=== PATIENT | male | born 1960 | race Caucasian/White ===

== ENCOUNTER → 2017-10-15 | Outpatient (CLI) | payer OTHER ==
[~2017-10-15] MED LIST: ALLO300T PO; AMLO5TAB2 PO; ASPI-496 PO; IBUP-1223 PO; LISI1TAB7 PO
[2017-10-15 15:19] LABS: MICROSCOPIC NOT IND
[2017-10-15 15:21] LABS: BASOPHILS # (AUTO) 0.07 x10^3/uL (0-0.1); BASOPHILS % (AUTO) 1 % (0-1); EOSINOPHILS # (AUTO) 0.35 x10^3/uL (0-0.4); EOSINOPHILS % (AUTO) 5 % (1-7); LYMPHOCYTES # (AUTO) 2.06 x10^3/uL (1-3.4); LYMPHOCYTES % (AUTO) 27 % (22-44); MD NO; MEAN CORPUSCULAR HGB CONC 34.1 g/dL (33.2-36.2); MEAN CORPUSCULAR VOLUME 99.8 fL (81-97); MEAN PLATELET VOLUME 7.1 fL (7.4-10.4); MONOCYTES # (AUTO) 0.63 x10^3/uL (0.2-0.8); MONOCYTES % (AUTO) 8 % (2-9); NEUTROPHILS # (AUTO) 4.57 x10^3/uL (1.8-6.8); NEUTROPHILS % (AUTO) 60 % (42-75); PLATELET COUNT 304 x10^3/uL (130-400); RED BLOOD COUNT 4.39 x10^6/uL (4.38-5.82); RED CELL DISTRIBUTION WIDTH 13.9 % (9.4-14.8)
[2017-10-15 15:30] LABS: ALANINE AMINOTRANSFERASE 21 U/L (12-78); ALBUMIN 3.9 g/dL (3.4-5.0); ANION GAP 7 mmol/L (5-15); CALCIUM 8.6 mg/dL (8.5-10.1); CHLORIDE 103 mmol/L (98-107); CREATININE 0.93 mg/dL (0.7-1.3)
[2017-10-15 15:33] LABS: ALKALINE PHOSPHATASE 75 U/L (45-117); BILIRUBIN,TOTAL 0.6 mg/dL (0.2-1.0); TOTAL PROTEIN 7.3 g/dL (6.4-8.2)
[2017-10-15 15:37] LABS: CULTURE INDICATED? NO
== END | disposition home or self-care (01) ==
LOC: STAR 14:16
PROVIDERS: ATTEND Orthopaedic Surgery
DX: Z01.818 Encounter for other preprocedural examination (principal); M17.0 Bilateral primary osteoarthritis of knee; Z96.651 Presence of right artificial knee joint
CPT/HCPCS: 36415; 80053; 81003; 85025; 87081; 93005

== ENCOUNTER 2017-10-28 07:06 | Inpatient (IN) | payer OTHER ==
[~2017-10-28] VITALS: Ht 177.8 cm; Wt 100.1 kg
[~2017-10-28 07:06] MED LIST changes: +EPINEPHRINE 1 MG/ML, 1ML ONE; +KETOROLAC 60 MG/2 ML ONE; +ROPIvacaine/PF 0.2%, 20 ML ONE; +TRANEXAMIC ACID 100 MG/ML, 10ML ONE
[2017-10-28] MEDS ORDERED: VANCOMYCIN PER PHARMACY MC ONE (07:17)
[2017-10-28] MEDS ORDERED: VANCOMYCIN 1,500 MG in SODIUM CHLORIDE 0.9% 250 ML IV ONE (07:30)
[2017-10-28] MEDS ORDERED: LACTATED RINGERS 1,000 ML IV SCH (07:34)
[2017-10-28] MEDS ORDERED: ACETAMINOPHEN 500 MG TABLET PO ONE (07:40)
[2017-10-28] MEDS ORDERED: GABAPENTIN 300 MG CAPSULE PO ONE (07:40)
[2017-10-28 07:43] VITALS: BP 119/80
[2017-10-28] MEDS ORDERED: FENTANYL PF 250 MCG/5ML ONE (07:59)
[2017-10-28] MEDS ORDERED: MIDAZOLAM 1 MG/ML, 2ML ONE (07:59)
[2017-10-28] MEDS ORDERED: morphine SULFATE/PF 1 MG/ML, 10ML ONE (08:49)
[2017-10-28] MEDS ORDERED: ROCURONIUM 10 MG/ML,10ML ONE (09:50)
[2017-10-28] MEDS ORDERED: PROPOFOL 10 MG/ML, 20ML ONE (09:50)
[2017-10-28] MEDS ORDERED: DEXAMETHASONE 4 MG/ML, 1ML ONE ×2 (09:50)
[2017-10-28] MEDS ORDERED: CEFAZOLIN 1,000 MG ONE ×2 (09:50)
[2017-10-28] MEDS ORDERED: ONDANSETRON 2MG/ML, 2ML ONE (09:51)
[2017-10-28] MEDS ORDERED: DIAZEPAM 5 MG/ML, 2ML IVPush PRN (10:00)
[2017-10-28] MEDS ORDERED: PROMETHAZINE 25 MG/ML, 1ML IV PRN (10:00)
[2017-10-28] MEDS ORDERED: EPHEDRINE 50 MG/ML, 1ML IVPush PRN (10:00)
[2017-10-28] MEDS ORDERED: ONDANSETRON 2MG/ML, 2ML IVPush PRN ×2 (10:00→13:00)
[2017-10-28] MEDS ORDERED: OXYcodone 5 MG/5 ML ORAL.SOL UDC PO PRN (10:00)
[2017-10-28] MEDS ORDERED: LABETALOL 5MG/ML, 20ML IV PRN (10:00)
[2017-10-28] MEDS ORDERED: ALBUTEROL SULFATE 2.5 MG/3 ML NPPB PRN (10:00)
[2017-10-28] MEDS ORDERED: MEPERIDINE/PF 25MG/0.5ML IVPush PRN (10:00)
[2017-10-28] MEDS ORDERED: hydrALAzine 20 MG/ML, 1ML IV PRN (10:00)
[2017-10-28] MEDS ORDERED: METOPROLOL 1 MG/ML, 5ML IV PRN (10:00)
[2017-10-28] MEDS ORDERED: GLYCOPYRROLATE 0.4 MG/2 ML, 2ML ONE (10:49)
[2017-10-28] MEDS ORDERED: NEOSTIGMINE 1 MG/ML, 10ML ONE (10:49)
[2017-10-28] MEDS ORDERED: FENTANYL PF 100 MCG/2ML ONE ×2 (11:24→11:40)
[2017-10-28] MEDS: FENTANYL PF 100 MCG/2ML IV PRN ×5 (11:25→11:57)
[2017-10-28] MEDS ORDERED: MORPHINE SULFATE 4 MG/ML, 1ML ONE ×3 (11:31→11:59)
[2017-10-28] MEDS ORDERED: OXYcodone 5 MG/5 ML ORAL.SOL UDC ONE (11:31)
[2017-10-28] MEDS: morphine SULFATE 10 MG/ML, 1ML IV PRN ×3 (11:34→12:07)
[2017-10-28 12:35] VITALS: BP 112/63
[2017-10-28] MEDS ORDERED: MAGNESIUM HYDROXIDE 8%, 30ML UDC PO PRN (13:00)
[2017-10-28] MEDS ORDERED: ONDANSETRON ODT 4 MG PO PRN (13:00)
[2017-10-28] MEDS ORDERED: SENNA/DOCUSATE TABLET PO PRN (13:00)
[2017-10-28] MEDS ORDERED: DIPHENHYDRAMINE 25 MG CAPSULE PO PRN (13:00)
[2017-10-28] MEDS ORDERED: ALUMINUM/MAG/SIMETHICONE 30 ML UDC PO PRN (13:00)
[2017-10-28] MEDS ORDERED: ACETAMINOPHEN 325 MG TABLET PO PRN (13:00)
[2017-10-28] MEDS ORDERED: ZOLPIDEM 5MG TABLET PO PRN (13:00)
[2017-10-28] MEDS ORDERED: BISACODYL 10 MG SUPP PR PRN (13:00)
[2017-10-28] MEDS: POTASSIUM CHLORIDE 10 MEQ in D5%-0.45% NACL 1,000 ML IV SCH (15:25)
[2017-10-28] MEDS: HYDROcodone/APAP 10/325 MG TABLET PO SCH ×2 (17:00→23:00)
[2017-10-28] MEDS: CEFAZOLIN PMX 1GM/50ML 50 ML IVPB SCH (17:11)
[2017-10-28 17:20] VITALS: BP 102/58
[2017-10-28 20:04] VITALS: BP 98/62
[2017-10-28] MEDS: DOCUSATE 100 MG CAPSULE PO SCH (22:18)
[2017-10-28] MEDS: HYDROcodone/APAP 10/325 MG TABLET PO PRN (22:21)
[2017-10-28] MEDS: SODIUM CHLORIDE FLUSH 10ML SYR IVF SCH (22:27)
[2017-10-29] MEDS: CEFAZOLIN PMX 1GM/50ML 50 ML IVPB SCH (01:19)
[2017-10-29 01:52] VITALS: BP 97/62
[2017-10-29] MEDS: HYDROcodone/APAP 10/325 MG TABLET PO PRN ×2 (02:09→06:03)
[2017-10-29 04:00] VITALS: BP 97/59
[2017-10-29] MEDS: HYDROcodone/APAP 10/325 MG TABLET PO SCH ×2 (05:00→11:00)
[2017-10-29] MEDS ORDERED: ENOXAPARIN 30 MG/0.3 ML SQ SCH (06:00)
[2017-10-29] MEDS ORDERED: AMLODIPINE 5 MG TABLET PO SCH (09:00)
[2017-10-29] MEDS: SODIUM CHLORIDE FLUSH 10ML SYR IVF SCH (09:00)
[2017-10-29] MEDS ORDERED: LISINOPRIL 20 MG TABLET PO SCH (09:00)
[2017-10-29] MEDS ORDERED: HYDROCHLOROTHIAZIDE 25 MG TABLET PO SCH (09:00)
[2017-10-29] MEDS ORDERED: MULTIVITAMINS/MINERALS TABLET PO SCH (09:00)
[2017-10-29] MEDS ORDERED: ALLOPURINOL 300 MG TABLET PO SCH (09:00)
[2017-10-29] MEDS: POTASSIUM CHLORIDE 10 MEQ in D5%-0.45% NACL 1,000 ML IV SCH (09:06)
[2017-10-29] MEDS ORDERED: GABAPENTIN 300 MG CAPSULE ONE (09:14)
[2017-10-29 09:17] VITALS: BP 103/68
[2017-10-29] MEDS: OXYcodone 5 MG/5 ML ORAL.SOL UDC PO PRN ×2 (09:22→14:11)
[2017-10-29] MEDS: DOCUSATE 100 MG CAPSULE PO SCH (09:23)
[2017-10-29] MEDS ORDERED: KETOROLAC 30 MG/1 ML IV SCH (13:00)
[2017-10-29 13:17] VITALS: BP 101/62
[2017-10-29] MEDS ORDERED: OXYC-307 PO (15:26)
[2017-10-29] MEDS ORDERED: ASPI-515 PO (15:29)
== END 2017-10-29 15:50 | disposition home or self-care (01) | DRG 470 ==
LOC: OUT 07:06 → EDSTATUS 07:30 → 4NOR 12:33 → OUT 23:56 → 4NOR 23:56 → DCLOUNGE 10-29 15:12
PROVIDERS: ADMIT Orthopaedic Surgery; ATTEND Orthopaedic Surgery
PROC: 0SRC0J9 Replacement of Right Knee Joint with Synthetic Substitute, Cemented, Open Approach (ICD-10-PCS; principal; 2017-10-28 09:00)
DX: M17.11 Unilateral primary osteoarthritis, right knee (principal)
CPT/HCPCS: C1713; J0171; J0690; J1100; J1650; J1885; J2250; J2274; J2405; J2704; J2710; J2795; J3010; J3370; J3480; C1776; J2270; J7050; J7120; Q0163

== ENCOUNTER 2018-04-03 00:51 | Inpatient (IN) | payer OTHER ==
[~2018-04-03] VITALS: Ht 172.7 cm; Wt 103.9 kg
[~2018-04-03 00:51] MED LIST changes: -AMLO5TAB2 PO; +AMLO5TAB7 PO; +ASPI-515 PO; -EPINEPHRINE 1 MG/ML, 1ML ONE; -KETOROLAC 60 MG/2 ML ONE; +OXYC-307 PO; -ROPIvacaine/PF 0.2%, 20 ML ONE; -TRANEXAMIC ACID 100 MG/ML, 10ML ONE
[2018-04-03 02:00] LABS: BASOPHILS # (AUTO) 0.05 x10^3/uL (0-0.1); BASOPHILS % (AUTO) 0 % (0-1); EOSINOPHILS # (AUTO) 0.47 x10^3/uL (0-0.4); EOSINOPHILS % (AUTO) 4 % (1-7); LYMPHOCYTES # (AUTO) 1.54 x10^3/uL (1-3.4); LYMPHOCYTES % (AUTO) 14 % (22-44); MD NO; MEAN CORPUSCULAR HEMOGLOBIN 34.5 pg (27.5-34.5); MEAN CORPUSCULAR HGB CONC 34.4 g/dL (33.2-36.2); MEAN CORPUSCULAR VOLUME 100.1 fL (81-97); MEAN PLATELET VOLUME 7.2 fL (7.4-10.4); MONOCYTES # (AUTO) 0.55 x10^3/uL (0.2-0.8); MONOCYTES % (AUTO) 5 % (2-9); NEUTROPHILS % (AUTO) 77 % (42-75); PLATELET COUNT 294 x10^3/uL (130-400); RED BLOOD COUNT 4.26 x10^6/uL (4.38-5.82); RED CELL DISTRIBUTION WIDTH 14.1 % (9.4-14.8)
[2018-04-03 02:00] LABS: MICROSCOPIC NOT IND
[2018-04-03 02:04] LABS: CULTURE INDICATED? NO
[2018-04-03 02:09] LABS: ALANINE AMINOTRANSFERASE 38 U/L (12-78); ALBUMIN 3.4 g/dL (3.4-5.0); ANION GAP 3 mmol/L (5-15); CALCIUM 8.6 mg/dL (8.5-10.1); CHLORIDE 107 mmol/L (98-107)
[2018-04-03 02:12] LABS: ALKALINE PHOSPHATASE 99 U/L (45-117); BILIRUBIN,TOTAL 0.3 mg/dL (0.2-1.0); TOTAL PROTEIN 6.9 g/dL (6.4-8.2)
[2018-04-03] MEDS ORDERED: OMNIPAQUE 350 MG/ML, 100ML BOTTLE ONE (02:55)
[2018-04-03] MEDS ORDERED: SODIUM CHLORIDE 0.9% 1,000 ML IV ONE (04:14)
[2018-04-03] MEDS ORDERED: MORPHINE SULFATE 4 MG/ML, 1ML IVPush PRN (04:30)
[2018-04-03] MEDS ORDERED: SODIUM CHLORIDE 0.9% 1,000ML IVBOLUS ONE (04:30)
[2018-04-03] MEDS ORDERED: ONDANSETRON ODT 4 MG ONE (04:38)
[2018-04-03] MEDS ORDERED: MORPHINE SULFATE 4 MG/ML, 1ML ONE (04:39)
[2018-04-03] MEDS: SODIUM CHLORIDE 0.9% 1,000 ML IV SCH ×4 (04:55→22:40)
[2018-04-03] MEDS ORDERED: ONDANSETRON 2MG/ML, 2ML IVPush PRN (05:00)
[2018-04-03] MEDS ORDERED: LABETALOL 5MG/ML, 20ML IVPush PRN (05:00)
[2018-04-03] MEDS ORDERED: ONDANSETRON ODT 4 MG PO PRN (05:00)
[2018-04-03] MEDS ORDERED: PROMETHAZINE 25 MG/ML, 1ML IM PRN (05:00)
[2018-04-03] MEDS ORDERED: OXYcodone/APAP 5/325MG TABLET PO PRN (05:00)
[2018-04-03] MEDS ORDERED: hydrALAzine 20 MG/ML, 1ML IVPush PRN (05:00)
[2018-04-03] MEDS ORDERED: GABAPENTIN 300 MG CAPSULE PO PRN (05:00)
[2018-04-03] MEDS ORDERED: DOCUSATE 100 MG CAPSULE PO PRN (05:00)
[2018-04-03] MEDS ORDERED: POLYETHYLENE GLYCOL 17 GM PACKET PO PRN (05:00)
[2018-04-03 05:49] LABS: FREE T4 (FREE THYROXINE) 0.91 ng/dL (0.76-1.46); THYROID STIMULATING HORMONE 2.18 mIU/L (0.358-3.740)
[2018-04-03] MEDS ORDERED: HEPARIN 5,000 UNITS/ML, 1ML ONE (06:19)
[2018-04-03] MEDS: HEPARIN 5,000 UNITS/ML, 1ML SQ SCH ×3 (06:21→21:00)
[2018-04-03 08:49] LABS: HEMOGLOBIN A1C 5.3 % (4.2-6.3)
[2018-04-03] MEDS: ASPIRIN 81 MG TABLET EC PO SCH ×2 (09:48→21:14)
[2018-04-03] MEDS: AMLODIPINE 10 MG TAB PO SCH (09:48)
[2018-04-03] MEDS: LISINOPRIL 20 MG TABLET PO SCH (09:48)
[2018-04-03] MEDS: ALLOPURINOL 300 MG TABLET PO SCH (09:48)
[2018-04-03] MEDS: morphine SULFATE 10 MG/ML, 1ML IVPush PRN ×4 (10:37→22:26)
[2018-04-03 14:04] VITALS: BP 100/68
[2018-04-03] MEDS: maalox/diphenh/lido/sucralfate 5 ML PO PRN ×2 (15:35→21:13)
[2018-04-03 19:52] VITALS: BP 120/74
[2018-04-03] MEDS ORDERED: DIPHENHYDRAMINE 50 MG/ML, 1ML IVPush PRN (22:30)
[2018-04-04 02:00] VITALS: BP 111/70
[2018-04-04] MEDS: SODIUM CHLORIDE 0.9% 1,000 ML IV SCH (04:06)
[2018-04-04] MEDS: HEPARIN 5,000 UNITS/ML, 1ML SQ SCH ×3 (05:00→21:00)
[2018-04-04 05:31] LABS: BASOPHILS # (AUTO) 0.05 x10^3/uL (0-0.1); BASOPHILS % (AUTO) 1 % (0-1); CHLORIDE 110 mmol/L (98-107); EOSINOPHILS # (AUTO) 0.39 x10^3/uL (0-0.4); EOSINOPHILS % (AUTO) 6 % (1-7); LYMPHOCYTES # (AUTO) 1.49 x10^3/uL (1-3.4); LYMPHOCYTES % (AUTO) 24 % (22-44); MD NO; MEAN CORPUSCULAR HGB CONC 33.9 g/dL (33.2-36.2); MEAN CORPUSCULAR VOLUME 100.3 fL (81-97); MEAN PLATELET VOLUME 7.2 fL (7.4-10.4); MONOCYTES # (AUTO) 0.68 x10^3/uL (0.2-0.8); MONOCYTES % (AUTO) 11 % (2-9); NEUTROPHILS # (AUTO) 3.69 x10^3/uL (1.8-6.8); NEUTROPHILS % (AUTO) 59 % (42-75); PLATELET COUNT 242 x10^3/uL (130-400); RED BLOOD COUNT 3.81 x10^6/uL (4.38-5.82); RED CELL DISTRIBUTION WIDTH 14.3 % (9.4-14.8)
[2018-04-04 05:48] LABS: ALANINE AMINOTRANSFERASE 47 U/L (12-78); ALBUMIN 2.9 g/dL (3.4-5.0); ALKALINE PHOSPHATASE 95 U/L (45-117); ANION GAP 5 mmol/L (5-15); BILIRUBIN,TOTAL 0.8 mg/dL (0.2-1.0); CALCIUM 8.2 mg/dL (8.5-10.1); CHOL/HDL RATIO 4.1; CHOLESTEROL, TOTAL 140 mg/dL (140-239); CREATININE 0.84 mg/dL (0.7-1.3); HDL CHOL % 24 % (26-37); HDL CHOLESTEROL (DIRECT) 34 mg/dL (40-60); LDL CHOLESTEROL,CALCULATED 77 mg/dL (54-169); LDL/HDL RATIO 2.3 (0.5-3.0); TOTAL PROTEIN 5.9 g/dL (6.4-8.2); TRIGLYCERIDES 145 mg/dL (50-200); VLDL CHOLESTEROL 29 mg/dL (0-25)
[2018-04-04] MEDS: ASPIRIN 81 MG TABLET EC PO SCH ×2 (08:12→19:54)
[2018-04-04] MEDS: ALLOPURINOL 300 MG TABLET PO SCH (08:12)
[2018-04-04] MEDS: LISINOPRIL 20 MG TABLET PO SCH (08:12)
[2018-04-04] MEDS: AMLODIPINE 10 MG TAB PO SCH (08:12)
[2018-04-04] MEDS: morphine SULFATE 10 MG/ML, 1ML IVPush PRN ×3 (08:32→19:54)
[2018-04-04 09:06] VITALS: BP 111/78
[2018-04-04 14:07] VITALS: BP 107/75
[2018-04-04 19:46] VITALS: BP 114/76
[2018-04-05 01:00] VITALS: BP 117/76
[2018-04-05] MEDS: HEPARIN 5,000 UNITS/ML, 1ML SQ SCH (04:41)
[2018-04-05 07:47] VITALS: BP 115/74
[2018-04-05] MEDS: ASPIRIN 81 MG TABLET EC PO SCH (07:48)
[2018-04-05] MEDS: ALLOPURINOL 300 MG TABLET PO SCH (07:48)
[2018-04-05] MEDS: LISINOPRIL 20 MG TABLET PO SCH (07:48)
[2018-04-05] MEDS: AMLODIPINE 10 MG TAB PO SCH (07:48)
== END 2018-04-05 08:50 | disposition home or self-care (01) | DRG 440 ==
LOC: ED 04:30 → EDIP 04:50 → 4NOR 08:51
PROVIDERS: ADMIT Internal Medicine; ATTEND Internal Medicine
DX: K85.20 Alcohol induced acute pancreatitis without necrosis or infection (principal); K80.20 Calculus of gallbladder without cholecystitis without obstruction; Y90.0 Blood alcohol level of less than 20 mg/100 ml; I10 Essential (primary) hypertension; K43.9 Ventral hernia without obstruction or gangrene; F10.10 Alcohol abuse, uncomplicated; K57.30 Diverticulosis of large intestine without perforation or abscess without bleeding; K82.8 Other specified diseases of gallbladder; M1A.9XX0 Chronic gout, unspecified, without tophus (tophi); Z96.651 Presence of right artificial knee joint; Z71.41 Alcohol abuse counseling and surveillance of alcoholic; Z88.6 Allergy status to analgesic agent
CPT/HCPCS: 36415; 74177; 74181; 80053; 80061; 81003; 83036; 83690; 83735; 84439; 84443; 85025; 93005; 99285; G0378; J1644; J2405; Q9967; J1200; J2270; J7030

== ENCOUNTER 2018-05-06 09:26 | Inpatient (IN) | payer OTHER ==
[~2018-05-06] VITALS: Ht 180.3 cm; Wt 113.9 kg
[~2018-05-06 09:26] MED LIST changes: +MIDAZOLAM 1 MG/ML, 5ML ONE; +ROCURONIUM 10 MG/ML,10ML ONE
[2018-05-06] MEDS ORDERED: ONDANSETRON 2MG/ML, 2ML ONE (09:58)
[2018-05-06] MEDS ORDERED: MORPHINE SULFATE 4 MG/ML, 1ML ONE ×2 (09:58→10:48)
[2018-05-06] MEDS ORDERED: ONDANSETRON 2MG/ML, 2ML IVPush ONE (10:00)
[2018-05-06] MEDS: MORPHINE SULFATE 4 MG/ML, 1ML IVPush PRN ×2 (10:00→10:52)
[2018-05-06] MEDS ORDERED: SODIUM CHLORIDE 0.9% 1,000ML IVBOLUS ONE ×2 (10:00→23:00)
[2018-05-06 10:13] LABS: MEAN CORPUSCULAR HEMOGLOBIN 33.8 pg (27.5-34.5); MEAN CORPUSCULAR HGB CONC 33.8 g/dL (33.2-36.2); MEAN CORPUSCULAR VOLUME 99.9 fL (81-97); MEAN PLATELET VOLUME 7.3 fL (7.4-10.4); PLATELET COUNT 338 x10^3/uL (130-400); RED BLOOD COUNT 4.73 x10^6/uL (4.38-5.82); RED CELL DISTRIBUTION WIDTH 14.1 % (9.4-14.8)
[2018-05-06 10:16] LABS: MICROSCOPIC NOT IND
[2018-05-06 10:21] LABS: CULTURE INDICATED? NO
[2018-05-06 10:26] LABS: ALANINE AMINOTRANSFERASE 66 U/L (12-78); ALBUMIN 3.6 g/dL (3.4-5.0); ANION GAP 7 mmol/L (5-15); CALCIUM 8.3 mg/dL (8.5-10.1); CHLORIDE 107 mmol/L (98-107)
[2018-05-06 10:29] LABS: ALKALINE PHOSPHATASE 126 U/L (45-117); BILIRUBIN,TOTAL 0.8 mg/dL (0.2-1.0); CREATININE 0.97 mg/dL (0.7-1.3); TOTAL PROTEIN 6.9 g/dL (6.4-8.2)
[2018-05-06 10:32] LABS: MD YES
[2018-05-06 10:35] LABS: BAND#(MANUAL) 1.01 x10^3/uL; BANDS%(MANUAL) 5 % (0-7); EOS% (MANUAL) 2 % (1-7); LYMPH#(MANUAL) 3.03 x10^3/uL (1-3.4); LYMPHS% (MANUAL) 15 % (22-44); MONOS#(MANUAL) 0.81 x10^3/uL (0.3-2.7); MONOS% (MANUAL) 4 % (2-9); SEG#(MANUAL) 14.95 x10^3/uL (1.8-6.8); SEGS% (MANUAL) 74 % (42-75)
[2018-05-06 10:36] LABS: <PLATELET ESTIMATE> ADEQUATE; <PLT MORPHOLOGY> NORMAL PLT MORPH; <RBC MORPHOLOGY> NORMAL
[2018-05-06] MEDS ORDERED: SODIUM CHLORIDE 0.9% 1,000 ML IV ONE (10:39)
[2018-05-06 13:02] VITALS: BP 90/57
[2018-05-06] MEDS ORDERED: ONDANSETRON 2MG/ML, 2ML IVPush PRN (14:00)
[2018-05-06] MEDS ORDERED: HYDROmorphone 2 MG/ML, 1ML ONE (14:02)
[2018-05-06] MEDS: HYDROmorphone 2 MG/ML, 1ML IVPush PRN ×4 (14:05→22:54)
[2018-05-06] MEDS: POTASSIUM CHLORIDE 20 MEQ, MAGNESIUM SULFATE 1 GM, FOLIC ACID 1 MG, THIAMINE 200 MG, MV... IV SCH (14:49)
[2018-05-06] MEDS: LORazepam 2 MG/ML, 1ML IVPush PRN (20:50)
[2018-05-06 21:00] VITALS: BP 75/47
[2018-05-06] MEDS ORDERED: PANTOPRAZOLE 40 MG IV IVPush SCH (21:00)
[2018-05-06] MEDS: SODIUM CHLORIDE 0.9% 1,000 ML IV SCH (21:00)
[2018-05-06] MEDS ORDERED: SODIUM CHLORIDE 0.9% 1,000 ML IVBOLUS PRN (21:52)
[2018-05-06] MEDS ORDERED: FLUMAZENIL 0.1 MG/1 ML, 5ML IVPush PRN (22:00)
[2018-05-06] MEDS ORDERED: NOREPINEPHRINE 1 MG/ML, 4ML ONE (22:28)
[2018-05-06] MEDS ORDERED: NOREPINEPHRINE 4 MG in SODIUM CHLORIDE 0.9% 246 ML IV PRN (22:30)
[2018-05-06] MEDS ORDERED: PIPERACILLIN/TAZO/PMX 4.5GM 100 ML IV SCH (22:30)
[2018-05-06] MEDS: NOREPINEPHRINE 4 MG in SODIUM CHLORIDE 0.9% 246 ML IV PRN (22:34)
[2018-05-06 22:35] LABS: ALANINE AMINOTRANSFERASE 91 U/L (12-78); ALBUMIN 2.6 g/dL (3.4-5.0); ANION GAP 9 mmol/L (5-15); CALCIUM 7.4 mg/dL (8.5-10.1); CHLORIDE 115 mmol/L (98-107); CREATININE 2.13 mg/dL (0.7-1.3)
[2018-05-06 22:36] LABS: INTERNATIONAL NORMALIZED RATIO 0.98 (0.93-1.1); PROTHROMBIN TIME 10.1 Seconds (9.6-11.5)
[2018-05-06 22:37] LABS: ALKALINE PHOSPHATASE 90 U/L (45-117); BILIRUBIN,TOTAL 0.6 mg/dL (0.2-1.0); TOTAL PROTEIN 5.4 g/dL (6.4-8.2)
[2018-05-06 22:42] LABS: TROPONIN I < 0.015 ng/mL (0.000-0.045)
[2018-05-07] MEDS ORDERED: GLUCAGON 1 MG IM PRN
[2018-05-07] MEDS ORDERED: DEXTROSE 50%, 50ML SYRINGE IVPush PRN
[2018-05-07] MEDS ORDERED: PANTOPRAZOLE 40 MG IV IVPush ONE
[2018-05-07] MEDS ORDERED: SODIUM CHLORIDE 0.9% 1,000ML IVBOLUS ONE
[2018-05-07] MEDS ORDERED: LACTULOSE 20 GM/30 ML UDC NG PRN
[2018-05-07] MEDS ORDERED: PHARMACY MAY ADJ FOR RENAL FX MC SCH
[2018-05-07] MEDS ORDERED: SENNOSIDES 8.8 MG/5 ML ORAL SOL NG PRN
[2018-05-07] MEDS ORDERED: SENNA/DOCUSATE TABLET NG PRN
[2018-05-07] MEDS ORDERED: BISACODYL 10 MG SUPP PR PRN
[2018-05-07] MEDS ORDERED: DEXTROSE 4 GM TAB.CHEW PO PRN
[2018-05-07] MEDS ORDERED: MIDAZOLAM 1 MG/ML, 5ML ONE (00:02)
[2018-05-07] MEDS ORDERED: ACETAMINOPHEN 325 MG TABLET PO PRN (00:30)
[2018-05-07] MEDS ORDERED: SODIUM BICARB 8.4%, 50ML SYRINGE ONE (00:30)
[2018-05-07] MEDS ORDERED: SODIUM BICARB 8.4%, 50ML SYRINGE IVPush ONE (00:30)
[2018-05-07 00:46] LABS: MEAN CORPUSCULAR HEMOGLOBIN 34.1 pg (27.5-34.5); MEAN CORPUSCULAR HGB CONC 34.1 g/dL (33.2-36.2); MEAN PLATELET VOLUME 7.7 fL (7.4-10.4); PLATELET COUNT 270 x10^3/uL (130-400)
[2018-05-07 00:56] LABS: ALANINE AMINOTRANSFERASE 81 U/L (12-78); ALBUMIN 2.4 g/dL (3.4-5.0); ANION GAP 8 mmol/L (5-15); CHLORIDE 115 mmol/L (98-107); CREATININE 2.17 mg/dL (0.7-1.3)
[2018-05-07 00:58] LABS: ALKALINE PHOSPHATASE 82 U/L (45-117); BILIRUBIN,TOTAL 0.6 mg/dL (0.2-1.0); TOTAL PROTEIN 5.1 g/dL (6.4-8.2)
[2018-05-07] MEDS: MIDAZOLAM HCL 25 MG in SODIUM CHLORIDE 0.9% 245 ML IV PRN ×2 (01:03→21:41)
[2018-05-07] MEDS: NOREPINEPHRINE 4 MG in SODIUM CHLORIDE 0.9% 246 ML IV PRN (01:23)
[2018-05-07] MEDS: VASOPRESSIN 100 UNIT in SODIUM CHLORIDE 0.9% 495 ML IV PRN (01:24)
[2018-05-07] MEDS ORDERED: POTASSIUM PHOSPHATE 22 MEQ in SODIUM CHLORIDE 0.9% 500 ML IV ONE (01:30)
[2018-05-07] MEDS ORDERED: EPINEPHRINE 1 MG in SODIUM CHLORIDE 0.9% 249 ML IV PRN (01:30)
[2018-05-07] MEDS: ALBUTEROL/IPRATROPIUM 2.5MG/0.5MG, 3 ML INLINE SCH ×6 (03:21→22:39)
[2018-05-07] MEDS ORDERED: SODIUM BICARBONATE 1 MEQ/ML, 50ML VIAL ONE ×2 (03:51)
[2018-05-07] MEDS ORDERED: SODIUM BICARBONATE 1 MEQ/ML, 50ML VIAL IVPush ONE (03:52)
[2018-05-07] MEDS ORDERED: PHENYLEPHRINE 20 MG in SODIUM CHLORIDE 0.9% 248 ML IV PRN (04:00)
[2018-05-07] MEDS: PHENYLEPHRINE 80 MG in SODIUM CHLORIDE 0.9% 242 ML IV PRN ×2 (04:16→19:51)
[2018-05-07] MEDS: MEROPENEM 1 GM in SODIUM CHLORIDE 0.9% 100 ML IV SCH ×2 (04:21→11:39)
[2018-05-07 04:33] LABS: MEAN CORPUSCULAR HEMOGLOBIN 33.5 pg (27.5-34.5); MEAN CORPUSCULAR HGB CONC 33.6 g/dL (33.2-36.2); MEAN CORPUSCULAR VOLUME 99.7 fL (81-97); MEAN PLATELET VOLUME 7.5 fL (7.4-10.4); PLATELET COUNT 298 x10^3/uL (130-400); RED BLOOD COUNT 3.91 x10^6/uL (4.38-5.82); RED CELL DISTRIBUTION WIDTH 14.1 % (9.4-14.8)
[2018-05-07] MEDS: EPINEPHRINE 2 MG in SODIUM CHLORIDE 0.9% 248 ML IV PRN ×3 (04:33→09:23)
[2018-05-07 04:44] LABS: ALANINE AMINOTRANSFERASE 68 U/L (12-78); ALBUMIN 2.1 g/dL (3.4-5.0); ANION GAP 14 mmol/L (5-15); CALCIUM 6.5 mg/dL (8.5-10.1); CHLORIDE 118 mmol/L (98-107)
[2018-05-07 04:49] LABS: ALKALINE PHOSPHATASE 73 U/L (45-117); BILIRUBIN,TOTAL 0.6 mg/dL (0.2-1.0); CREATININE 2.19 mg/dL (0.7-1.3); TOTAL PROTEIN 4.6 g/dL (6.4-8.2)
[2018-05-07] MEDS: SODIUM CHLORIDE 0.9% 1,000 ML IV SCH (05:00)
[2018-05-07 05:10] LABS: MD YES
[2018-05-07 05:12] LABS: <PLATELET ESTIMATE> ADEQUATE; <RBC MORPHOLOGY> NORMAL; BAND#(MANUAL) 1.73 x10^3/uL; BANDS%(MANUAL) 15 % (0-7); LYMPH#(MANUAL) 0.92 x10^3/uL (1-3.4); LYMPHS% (MANUAL) 8 % (22-44); MONOS#(MANUAL) 0.81 x10^3/uL (0.3-2.7); MONOS% (MANUAL) 7 % (2-9); SEG#(MANUAL) 8.05 x10^3/uL (1.8-6.8); SEGS% (MANUAL) 70 % (42-75)
[2018-05-07 05:13] LABS: <PLT MORPHOLOGY> NORMAL PLT MORPH
[2018-05-07] MEDS ORDERED: MAGNESIUM SULFATE PMX 2GM/50ML 50 ML IV ONE (06:00)
[2018-05-07] MEDS: FENTANYL PF 100 MCG/2ML IVPush PRN ×3 (06:13→08:49)
[2018-05-07] MEDS: INSULIN LISPRO 100 UNITS/ML, PEN SQ-INSULIN SCH ×5 (07:00→21:42)
[2018-05-07] MEDS ORDERED: CALCIUM CHLORIDE 13.6 MEQ in SODIUM CHLORIDE 0.9% 100 ML IV ONE (08:00)
[2018-05-07] MEDS: SODIUM BICARB 8.4%,50ML SYR. 150 MEQ in DEXTROSE 5% 1,000 ML IV SCH ×2 (08:58→17:50)
[2018-05-07] MEDS: SODIUM CHLORIDE FLUSH 10ML SYR IVF SCH ×2 (09:00→21:42)
[2018-05-07] MEDS ORDERED: PANTOPRAZOLE 40 MG IV IV SCH (09:00)
[2018-05-07] MEDS ORDERED: EPINEPHRINE 4 MG in SODIUM CHLORIDE 0.9% 246 ML IV PRN (09:00)
[2018-05-07] MEDS: FENTANYL PF 2,500 MCG in SODIUM CHLORIDE 0.9% 200 ML IV PRN (09:15)
[2018-05-07] MEDS: NOREPINEPHRINE 16 MG in SODIUM CHLORIDE 0.9% 234 ML IV PRN ×2 (11:20→22:56)
[2018-05-07] MEDS: PANTOPRAZOLE 80 MG in SODIUM CHLORIDE 0.9% 100 ML IV SCH ×3 (12:15→22:56)
[2018-05-07] MEDS ORDERED: SODIUM CHLORIDE 0.9% 1,000 ML IV SCH (13:50)
[2018-05-07] MEDS: POTASSIUM CHLORIDE 20 MEQ, MAGNESIUM SULFATE 1 GM, FOLIC ACID 1 MG, THIAMINE 200 MG, MV... IV SCH (15:08)
[2018-05-07] MEDS ORDERED: MIDAZOLAM 1 MG/ML, 5ML IVPush ONE (15:30)
[2018-05-08] MEDS: ACETAMINOPHEN 650 MG SUPP PR PRN (00:27)
[2018-05-08] MEDS: MEROPENEM 1 GM in SODIUM CHLORIDE 0.9% 100 ML IV SCH ×3 (01:44→18:26)
[2018-05-08] MEDS: SODIUM BICARB 8.4%,50ML SYR. 150 MEQ in DEXTROSE 5% 1,000 ML IV SCH (01:49)
[2018-05-08] MEDS: ALBUTEROL/IPRATROPIUM 2.5MG/0.5MG, 3 ML INLINE SCH ×6 (02:23→22:59)
[2018-05-08] MEDS ORDERED: DIGOXIN 0.25 MG/ML, 2ML ONE ×2 (03:42→12:39)
[2018-05-08] MEDS ORDERED: DIGOXIN 0.25 MG/ML, 2ML IVPush ONE ×3 (04:30→14:30)
[2018-05-08] MEDS: AMIODARONE 900 MG in DEXTROSE 5% 482 ML IV PRN ×2 (04:50→21:40)
[2018-05-08] MEDS ORDERED: FILTER 0.22 MICRON IV PRN (05:00)
[2018-05-08] MEDS ORDERED: AMIODARONE 150 MG in DEXTROSE 5% 100 ML IV ONE ×2 (05:00→12:30)
[2018-05-08 05:47] LABS: ALANINE AMINOTRANSFERASE 49 U/L (12-78); ALBUMIN 1.7 g/dL (3.4-5.0); ANION GAP 8 mmol/L (5-15); CALCIUM 6.6 mg/dL (8.5-10.1); CHLORIDE 114 mmol/L (98-107); MEAN CORPUSCULAR HEMOGLOBIN 33.5 pg (27.5-34.5); MEAN CORPUSCULAR HGB CONC 33.3 g/dL (33.2-36.2); MEAN CORPUSCULAR VOLUME 100.5 fL (81-97); MEAN PLATELET VOLUME 8.1 fL (7.4-10.4); PLATELET COUNT 241 x10^3/uL (130-400); RED BLOOD COUNT 4.33 x10^6/uL (4.38-5.82); RED CELL DISTRIBUTION WIDTH 14.4 % (9.4-14.8)
[2018-05-08 05:50] LABS: ALKALINE PHOSPHATASE 74 U/L (45-117); BILIRUBIN,TOTAL 0.7 mg/dL (0.2-1.0); TOTAL PROTEIN 4.8 g/dL (6.4-8.2)
[2018-05-08 05:54] LABS: TROPONIN I < 0.015 ng/mL (0.000-0.045)
[2018-05-08 06:16] LABS: MD YES
[2018-05-08 06:20] LABS: LYMPH#(MANUAL) 0.58 x10^3/uL (1-3.4); LYMPHS% (MANUAL) 9 % (22-44); METAMYELOCYTES# (MANUAL) 0.19 x10^3/uL (0-0); METAMYELOCYTES% (MANUAL) 3 % (0-1); MONOS#(MANUAL) 0.13 x10^3/uL (0.3-2.7); MONOS% (MANUAL) 2 % (2-9); PMNS WITH VACUOLES 1+; SMUDGE CELLS 1+
[2018-05-08 06:22] LABS: <PLATELET ESTIMATE> ADEQUATE; <PLT MORPHOLOGY> NORMAL PLT MORPH; <RBC MORPHOLOGY> NORMAL
[2018-05-08 06:24] LABS: BAND#(MANUAL) 2.75 x10^3/uL; BANDS%(MANUAL) 43 % (0-7); SEG#(MANUAL) 2.75 x10^3/uL (1.8-6.8); SEGS% (MANUAL) 43 % (42-75)
[2018-05-08] MEDS: INSULIN LISPRO 100 UNITS/ML, PEN SQ-INSULIN SCH ×4 (06:46→21:00)
[2018-05-08] MEDS ORDERED: CALCIUM CHLORIDE 13.6 MEQ in SODIUM CHLORIDE 0.9% 100 ML IV ONE (07:30)
[2018-05-08] MEDS: PANTOPRAZOLE 80 MG in SODIUM CHLORIDE 0.9% 100 ML IV SCH (07:50)
[2018-05-08] MEDS: MIDAZOLAM HCL 25 MG in SODIUM CHLORIDE 0.9% 245 ML IV PRN ×2 (07:51→18:26)
[2018-05-08] MEDS: SODIUM CHLORIDE FLUSH 10ML SYR IVF SCH ×2 (07:51→21:40)
[2018-05-08] MEDS: PHENYLEPHRINE 80 MG in SODIUM CHLORIDE 0.9% 242 ML IV PRN (08:30)
[2018-05-08] MEDS: VASOPRESSIN 100 UNIT in SODIUM CHLORIDE 0.9% 495 ML IV PRN (08:30)
[2018-05-08] MEDS: SODIUM BICARB 8.4%,50ML SYR. 50 MEQ in SODIUM CHLORIDE 0.45% 1,000 ML IV SCH ×3 (08:41→22:42)
[2018-05-08] MEDS: PANTOPRAZOLE 40 MG IV IVPush SCH (08:53)
[2018-05-08] MEDS: ALBUMIN HUMAN 25% 100 ML IV SCH ×2 (09:43→18:27)
[2018-05-08] MEDS: NOREPINEPHRINE 16 MG in SODIUM CHLORIDE 0.9% 234 ML IV PRN (11:19)
[2018-05-08 11:39] LABS: TROPONIN I 0.017 ng/mL (0.000-0.045)
[2018-05-08] MEDS: FENTANYL PF 2,500 MCG in SODIUM CHLORIDE 0.9% 200 ML IV PRN (11:55)
[2018-05-08] MEDS: CALCIUM CHLORIDE 13.6 MEQ in SODIUM CHLORIDE 0.9% 100 ML IV PRN (12:23)
[2018-05-08] MEDS ORDERED: OMNIPAQUE 350 MG/ML, 100ML BOTTLE ONE (13:40)
[2018-05-08] MEDS: POTASSIUM CHLORIDE 20 MEQ, MAGNESIUM SULFATE 1 GM, FOLIC ACID 1 MG, THIAMINE 200 MG, MV... IV SCH (15:13)
[2018-05-08] MEDS ORDERED: FENTANYL PF 250 MCG/5ML ONE (15:42)
[2018-05-08] MEDS ORDERED: VASOPRESSIN 20 UNIT/ML, 1ML ONE (15:45)
[2018-05-08] MEDS ORDERED: MIDAZOLAM 1 MG/ML, 5ML ONE (16:57)
[2018-05-08] MEDS ORDERED: THROMBIN 20,000 UNIT VIAL TP ONE (17:22)
[2018-05-09] MEDS: MEROPENEM 1 GM in SODIUM CHLORIDE 0.9% 100 ML IV SCH ×3 (01:39→18:07)
[2018-05-09] MEDS: NOREPINEPHRINE 16 MG in SODIUM CHLORIDE 0.9% 234 ML IV PRN (02:04)
[2018-05-09] MEDS: ALBUMIN HUMAN 25% 100 ML IV SCH ×3 (02:50→17:38)
[2018-05-09] MEDS: INSULIN LISPRO 100 UNITS/ML, PEN SQ-INSULIN SCH ×4 (03:00→21:00)
[2018-05-09] MEDS: ALBUTEROL/IPRATROPIUM 2.5MG/0.5MG, 3 ML INLINE SCH ×6 (03:10→22:35)
[2018-05-09 04:37] LABS: CHLORIDE 111 mmol/L (98-107)
[2018-05-09 04:38] LABS: ANION GAP 9 mmol/L (5-15); CALCIUM 6.6 mg/dL (8.5-10.1); CREATININE 0.86 mg/dL (0.7-1.3)
[2018-05-09 05:55] LABS: MEAN CORPUSCULAR HEMOGLOBIN 33.8 pg (27.5-34.5); MEAN CORPUSCULAR HGB CONC 33.5 g/dL (33.2-36.2); MEAN CORPUSCULAR VOLUME 100.9 fL (81-97); MEAN PLATELET VOLUME 8.1 fL (7.4-10.4); PLATELET COUNT 102 x10^3/uL (130-400); RED BLOOD COUNT 2.85 x10^6/uL (4.38-5.82); RED CELL DISTRIBUTION WIDTH 14.8 % (9.4-14.8)
[2018-05-09 06:16] LABS: MD YES
[2018-05-09 06:22] LABS: BAND#(MANUAL) 0.36 x10^3/uL; BANDS%(MANUAL) 7 % (0-7); LYMPH#(MANUAL) 0.26 x10^3/uL (1-3.4); LYMPHS% (MANUAL) 5 % (22-44); METAMYELOCYTES% (MANUAL) 2 % (0-1); MONOS% (MANUAL) 2 % (2-9); MYELOCYTES# (MANUAL) 0.05 x10^3/uL (0-0); MYELOCYTES% (MANUAL) 1 % (0-0); SEG#(MANUAL) 4.32 x10^3/uL (1.8-6.8); SEGS% (MANUAL) 83 % (42-75)
[2018-05-09 06:25] LABS: PMNS WITH VACUOLES 1+; POLYCHROMASIA 1+
[2018-05-09 06:26] LABS: <PLATELET ESTIMATE> DECREASED; <PLT MORPHOLOGY> NORMAL PLT MORPH
[2018-05-09] MEDS: MIDAZOLAM HCL 25 MG in SODIUM CHLORIDE 0.9% 245 ML IV PRN ×2 (06:34→17:08)
[2018-05-09] MEDS: SODIUM BICARB 8.4%,50ML SYR. 50 MEQ in SODIUM CHLORIDE 0.45% 1,000 ML IV SCH ×2 (06:55→15:49)
[2018-05-09] MEDS: CALCIUM CHLORIDE 13.6 MEQ in SODIUM CHLORIDE 0.9% 100 ML IV PRN ×2 (07:34→13:28)
[2018-05-09] MEDS: SODIUM CHLORIDE FLUSH 10ML SYR IVF SCH ×2 (07:34→21:38)
[2018-05-09] MEDS: FENTANYL PF 2,500 MCG in SODIUM CHLORIDE 0.9% 200 ML IV PRN (07:37)
[2018-05-09] MEDS: PANTOPRAZOLE 40 MG IV IVPush SCH (08:38)
[2018-05-09 09:11] LABS: HIT RESULT NEGATIVE (NEGATIVE)
[2018-05-09] MEDS: METHYLNALTREXONE 12 MG/0.6 ML SQ SCH (09:20)
[2018-05-09] MEDS: AMIODARONE 900 MG in DEXTROSE 5% 482 ML IV PRN (11:38)
[2018-05-09] MEDS ORDERED: TPN PER PHARMACY MC PRN (13:00)
[2018-05-09] MEDS: POTASSIUM CHLORIDE 20 MEQ, MAGNESIUM SULFATE 1 GM, FOLIC ACID 1 MG, THIAMINE 200 MG, MV... IV SCH (14:51)
[2018-05-09] MEDS ORDERED: FILTER, DISP 1.2 MICRON FOR TPN/PVN IV PRN ×2 (16:00→17:00)
[2018-05-09] MEDS ORDERED: AMIODARONE 150 MG in DEXTROSE 5% 100 ML IV ONE (16:00)
[2018-05-09] MEDS: SODIUM BICARB 8.4%,50ML SYR. 50 MEQ in DEXTROSE 5% 1,000 ML IV SCH (16:54)
[2018-05-09] MEDS ORDERED: AMINO ACID 10% IV SCH (17:00)
[2018-05-09] MEDS ORDERED: DEXTROSE 70% IV SCH (17:00)
[2018-05-09] MEDS ORDERED: DEXTROSE 10% 500 ML IV PRN (17:00)
[2018-05-09] MEDS ORDERED: FAT EMUL IV SCH (17:00)
[2018-05-09] MEDS ORDERED: DIGOXIN 0.25 MG/ML, 2ML IVPush ONE (17:00)
[2018-05-09] MEDS ORDERED: SMOF TPN IV SCH (17:00)
[2018-05-09] MEDS ORDERED: [UNRECOGNIZED DRUG - OTHER] IV SCH (17:00)
[2018-05-09] MEDS ORDERED: DEXTROSE 50%, 50ML SYRINGE IVPush PRN (17:00)
[2018-05-09] MEDS ORDERED: INSULIN REGULAR LOW DOSE QDAY SQ-INSULIN SCH (21:00)
[2018-05-09] MEDS ORDERED: INSULIN REGULAR LOW DOSE Q6H X 48HRS SQ-INSULIN SCH (21:00)
[2018-05-09] MEDS ORDERED: FUROSEMIDE 20 MG/2 ML ONE (21:14)
[2018-05-09] MEDS ORDERED: FUROSEMIDE 20 MG/2 ML IV ONE (21:30)
[2018-05-10] MEDS: CALCIUM CHLORIDE 13.6 MEQ in SODIUM CHLORIDE 0.9% 100 ML IV PRN (01:03)
[2018-05-10] MEDS: ALBUTEROL/IPRATROPIUM 2.5MG/0.5MG, 3 ML INLINE SCH ×6 (02:00→22:31)
[2018-05-10] MEDS: MEROPENEM 1 GM in SODIUM CHLORIDE 0.9% 100 ML IV SCH ×3 (02:11→17:49)
[2018-05-10] MEDS: SODIUM BICARB 8.4%,50ML SYR. 50 MEQ in DEXTROSE 5% 1,000 ML IV SCH (02:26)
[2018-05-10] MEDS: VASOPRESSIN 100 UNIT in SODIUM CHLORIDE 0.9% 495 ML IV PRN (02:26)
[2018-05-10] MEDS: AMIODARONE 900 MG in DEXTROSE 5% 482 ML IV PRN ×2 (02:27→23:50)
[2018-05-10] MEDS ORDERED: FUROSEMIDE 20 MG/2 ML IV ONE ×2 (02:30→04:30)
[2018-05-10] MEDS: ALBUMIN HUMAN 25% 100 ML IV SCH ×3 (02:55→18:00)
[2018-05-10] MEDS: INSULIN LISPRO 100 UNITS/ML, PEN SQ-INSULIN SCH ×4 (03:00→21:00)
[2018-05-10] MEDS: MIDAZOLAM 1 MG/ML, 2ML IVPush PRN (03:56)
[2018-05-10] MEDS ORDERED: PROPOFOL 100 ML IV ONE (04:34)
[2018-05-10] MEDS: PROPOFOL 100 ML IV PRN ×2 (04:53→10:41)
[2018-05-10 06:33] LABS: CHLORIDE 108 mmol/L (98-107)
[2018-05-10 06:38] LABS: MEAN CORPUSCULAR HEMOGLOBIN 34.1 pg (27.5-34.5); MEAN CORPUSCULAR HGB CONC 34.2 g/dL (33.2-36.2); MEAN CORPUSCULAR VOLUME 99.6 fL (81-97); RED BLOOD COUNT 2.62 x10^6/uL (4.38-5.82); RED CELL DISTRIBUTION WIDTH 14.8 % (9.4-14.8)
[2018-05-10 06:50] LABS: MD YES
[2018-05-10 06:52] LABS: ALANINE AMINOTRANSFERASE 23 U/L (12-78); ALBUMIN 2.4 g/dL (3.4-5.0); ALKALINE PHOSPHATASE 63 U/L (45-117); ANION GAP 10 mmol/L (5-15); BILIRUBIN,TOTAL 1.5 mg/dL (0.2-1.0); CALCIUM 7.7 mg/dL (8.5-10.1); CREATININE 0.75 mg/dL (0.7-1.3); PREALBUMIN 4.8 mg/dL (20.0-40.0); TOTAL PROTEIN 5.3 g/dL (6.4-8.2); TRIGLYCERIDES 301 mg/dL (50-200)
[2018-05-10 08:13] LABS: <RBC MORPHOLOGY> NORMAL; BAND#(MANUAL) 0.93 x10^3/uL; BANDS%(MANUAL) 16 % (0-7); LYMPH#(MANUAL) 0.23 x10^3/uL (1-3.4); LYMPHS% (MANUAL) 4 % (22-44); PMNS WITH VACUOLES 1+; SEG#(MANUAL) 4.64 x10^3/uL (1.8-6.8); SEGS% (MANUAL) 80 % (42-75); TOXIC GRAN 1+
[2018-05-10 08:14] LABS: <PLATELET ESTIMATE> DECREASED; MEAN PLATELET VOLUME 8.5 fL (7.4-10.4); PLATELET COUNT 74 x10^3/uL (130-400)
[2018-05-10] MEDS: FENTANYL PF 2,500 MCG in SODIUM CHLORIDE 0.9% 200 ML IV PRN (08:14)
[2018-05-10 08:15] LABS: <PLT MORPHOLOGY> NORMAL PLT MORPH
[2018-05-10] MEDS: NOREPINEPHRINE 16 MG in SODIUM CHLORIDE 0.9% 234 ML IV PRN (08:15)
[2018-05-10] MEDS ORDERED: POTASSIUM PHOSPHATE 22 MEQ in SODIUM CHLORIDE 0.9% 500 ML IV ONE (09:00)
[2018-05-10] MEDS ORDERED: BUMETANIDE 0.25 MG/ML, 10ML IV ONE (10:00)
[2018-05-10] MEDS: SODIUM CHLORIDE FLUSH 10ML SYR IVF SCH ×2 (10:41→21:46)
[2018-05-10] MEDS: PANTOPRAZOLE 40 MG IV IVPush SCH (10:41)
[2018-05-10] MEDS ORDERED: FENTANYL PF 100 MCG/2ML IVPush ONE (11:00)
[2018-05-10] MEDS ORDERED: MIDAZOLAM 1 MG/ML, 5ML IVPush ONE (11:00)
[2018-05-10] MEDS ORDERED: VECURONIUM 10 MG IVPush ONE (11:00)
[2018-05-10] MEDS ORDERED: SODIUM BICARB 8.4%,50ML SYR. 50 MEQ in DEXTROSE 5% 1,000 ML IV SCH (11:30)
[2018-05-10] MEDS: DEXTROSE 5% IVPB SCH ×3 (12:12→20:18)
[2018-05-10] MEDS: BUMETANIDE IVPB SCH ×3 (12:12→20:18)
[2018-05-10] MEDS ORDERED: MIDAZOLAM 1 MG/ML, 5ML ONE (15:26)
[2018-05-10] MEDS ORDERED: VECURONIUM 10 MG ONE (15:26)
[2018-05-10] MEDS ORDERED: AMINO ACID 10% IV SCH (17:00)
[2018-05-10] MEDS ORDERED: FAT EMUL IV SCH (17:00)
[2018-05-10] MEDS ORDERED: [UNRECOGNIZED DRUG - OTHER] IV SCH (17:00)
[2018-05-10] MEDS ORDERED: SMOF TPN IV SCH (17:00)
[2018-05-10] MEDS ORDERED: DEXTROSE 70% IV SCH (17:00)
[2018-05-10] MEDS: ACETAMINOPHEN 650 MG SUPP PR PRN (17:49)
[2018-05-11] MEDS ORDERED: MIDAZOLAM HCL 25 MG in SODIUM CHLORIDE 0.9% 245 ML IV PRN
[2018-05-11] MEDS: PROPOFOL 100 ML IV PRN ×3 (00:23→23:46)
[2018-05-11] MEDS: MEROPENEM 1 GM in SODIUM CHLORIDE 0.9% 100 ML IV SCH ×3 (01:36→18:13)
[2018-05-11] MEDS: ALBUTEROL/IPRATROPIUM 2.5MG/0.5MG, 3 ML INLINE SCH ×6 (02:27→22:00)
[2018-05-11] MEDS: INSULIN LISPRO 100 UNITS/ML, PEN SQ-INSULIN SCH ×4 (03:00→21:00)
[2018-05-11] MEDS: ALBUMIN HUMAN 25% 100 ML IV SCH ×3 (03:12→18:13)
[2018-05-11 04:49] LABS: ALBUMIN 2.6 g/dL (3.4-5.0); ANION GAP 8 mmol/L (5-15); CALCIUM 7.6 mg/dL (8.5-10.1); CHLORIDE 101 mmol/L (98-107)
[2018-05-11 04:51] LABS: MEAN CORPUSCULAR HGB CONC 34.4 g/dL (33.2-36.2); MEAN CORPUSCULAR VOLUME 98.8 fL (81-97); PLATELET COUNT 59 x10^3/uL (130-400); RED BLOOD COUNT 3.78 x10^6/uL (4.38-5.82); RED CELL DISTRIBUTION WIDTH 14.9 % (9.4-14.8)
[2018-05-11 04:54] LABS: ALANINE AMINOTRANSFERASE 29 U/L (12-78); ALKALINE PHOSPHATASE 79 U/L (45-117); BILIRUBIN,TOTAL 1.9 mg/dL (0.2-1.0); CREATININE 0.71 mg/dL (0.7-1.3); TOTAL PROTEIN 5.9 g/dL (6.4-8.2); TRIGLYCERIDES 256 mg/dL (50-200)
[2018-05-11 05:40] LABS: MD YES
[2018-05-11 05:42] LABS: BAND#(MANUAL) 0.16 x10^3/uL; BANDS%(MANUAL) 3 % (0-7); LYMPH#(MANUAL) 0.21 x10^3/uL (1-3.4); LYMPHS% (MANUAL) 4 % (22-44); MONOS% (MANUAL) 2 % (2-9); SEG#(MANUAL) 4.73 x10^3/uL (1.8-6.8); SEGS% (MANUAL) 91 % (42-75)
[2018-05-11 05:43] LABS: <PLATELET ESTIMATE> DECREASED; <PLT MORPHOLOGY> NORMAL PLT MORPH; PMNS WITH VACUOLES 1+; POLYCHROMASIA 1+; TOXIC GRAN 1+
[2018-05-11] MEDS ORDERED: MAGNESIUM SULFATE PMX 4GM/100M 100 ML IVPB ONE (06:30)
[2018-05-11] MEDS ORDERED: POTASSIUM CHLORIDE 40 MEQ in SODIUM CHLORIDE 0.9% 100 ML IV ONE (06:30)
[2018-05-11] MEDS ORDERED: POTASSIUM PHOSPHATE 44 MEQ in SODIUM CHLORIDE 0.9% 500 ML IV ONE (06:30)
[2018-05-11] MEDS: FENTANYL PF 2,500 MCG in SODIUM CHLORIDE 0.9% 200 ML IV PRN (07:52)
[2018-05-11] MEDS: BUMETANIDE IVPB SCH ×2 (07:52→15:02)
[2018-05-11] MEDS: DEXTROSE 5% IVPB SCH ×2 (07:52→15:02)
[2018-05-11] MEDS: NOREPINEPHRINE 16 MG in SODIUM CHLORIDE 0.9% 234 ML IV PRN (07:53)
[2018-05-11] MEDS: PANTOPRAZOLE 40 MG IV IVPush SCH (10:01)
[2018-05-11] MEDS: SODIUM CHLORIDE FLUSH 10ML SYR IVF SCH ×2 (10:01→21:25)
[2018-05-11] MEDS: METHYLNALTREXONE 12 MG/0.6 ML SQ SCH (12:01)
[2018-05-11] MEDS: chlorPROMAZINE 25 MG/ML, 1ML IM PRN (15:59)
[2018-05-11] MEDS ORDERED: SMOF TPN IV SCH ×2 (17:00)
[2018-05-11] MEDS ORDERED: [UNRECOGNIZED DRUG - OTHER] IV SCH ×2 (17:00)
[2018-05-11] MEDS ORDERED: FAT EMUL IV SCH ×2 (17:00)
[2018-05-11] MEDS ORDERED: AMINO ACID 10% IV SCH ×2 (17:00)
[2018-05-11] MEDS ORDERED: DEXTROSE 70% IV SCH ×2 (17:00)
[2018-05-11] MEDS: VASOPRESSIN 100 UNIT in SODIUM CHLORIDE 0.9% 495 ML IV PRN (21:26)
[2018-05-12] MEDS: ACETAMINOPHEN 650 MG SUPP PR PRN ×2 (01:19→14:23)
[2018-05-12] MEDS: ALBUTEROL/IPRATROPIUM 2.5MG/0.5MG, 3 ML INLINE SCH ×6 (02:00→22:00)
[2018-05-12] MEDS: MEROPENEM 1 GM in SODIUM CHLORIDE 0.9% 100 ML IV SCH ×3 (02:21→18:13)
[2018-05-12] MEDS: INSULIN LISPRO 100 UNITS/ML, PEN SQ-INSULIN SCH ×4 (03:00→21:00)
[2018-05-12] MEDS: ALBUMIN HUMAN 25% 100 ML IV SCH ×3 (03:04→18:13)
[2018-05-12 04:31] LABS: MEAN CORPUSCULAR HEMOGLOBIN 34.4 pg (27.5-34.5); MEAN CORPUSCULAR HGB CONC 34.8 g/dL (33.2-36.2); MEAN CORPUSCULAR VOLUME 98.8 fL (81-97); MEAN PLATELET VOLUME 8.9 fL (7.4-10.4); PLATELET COUNT 92 x10^3/uL (130-400); RED BLOOD COUNT 2.49 x10^6/uL (4.38-5.82); RED CELL DISTRIBUTION WIDTH 15.4 % (9.4-14.8)
[2018-05-12 04:38] LABS: CHLORIDE 97 mmol/L (98-107)
[2018-05-12 04:39] LABS: ALBUMIN 2.6 g/dL (3.4-5.0); ANION GAP 9 mmol/L (5-15); CALCIUM 7.8 mg/dL (8.5-10.1)
[2018-05-12 04:42] LABS: ALANINE AMINOTRANSFERASE 40 U/L (12-78); ALKALINE PHOSPHATASE 81 U/L (45-117); BILIRUBIN,TOTAL 1.9 mg/dL (0.2-1.0); CREATININE 0.77 mg/dL (0.7-1.3); TOTAL PROTEIN 5.9 g/dL (6.4-8.2)
[2018-05-12 04:55] LABS: BASOPHILS # (AUTO) 0.27 x10^3/uL (0-0.1); BASOPHILS % (AUTO) 3 % (0-1); EOSINOPHILS # (AUTO) 0.02 x10^3/uL (0-0.4); EOSINOPHILS % (AUTO) 0 % (1-7); LYMPHOCYTES # (AUTO) 0.56 x10^3/uL (1-3.4); LYMPHOCYTES % (AUTO) 6 % (22-44); MD SCAN; MONOCYTES # (AUTO) 0.22 x10^3/uL (0.2-0.8); MONOCYTES % (AUTO) 2 % (2-9); NEUTROPHILS # (AUTO) 8.27 x10^3/uL (1.8-6.8); NEUTROPHILS % (AUTO) 89 % (42-75)
[2018-05-12] MEDS ORDERED: MAGNESIUM SULFATE PMX 4GM/100M 100 ML IV ONE (08:30)
[2018-05-12] MEDS: KSCALE TO 4.0 IV SCH ×3 (08:30→20:30)
[2018-05-12] MEDS ORDERED: POTASSIUM CHLORIDE 30 MEQ in SODIUM CHLORIDE 0.9% 100 ML IV ONE (09:00)
[2018-05-12] MEDS: SODIUM CHLORIDE FLUSH 10ML SYR IVF SCH ×2 (09:57→22:00)
[2018-05-12] MEDS: PANTOPRAZOLE 40 MG IV IVPush SCH (10:46)
[2018-05-12] MEDS: FENTANYL PF 2,500 MCG in SODIUM CHLORIDE 0.9% 200 ML IV PRN (10:46)
[2018-05-12] MEDS: PROPOFOL 100 ML IV PRN ×2 (11:58→21:59)
[2018-05-12] MEDS: BUMETANIDE IVPB SCH (13:53)
[2018-05-12] MEDS: DEXTROSE 5% IVPB SCH (13:53)
[2018-05-12] MEDS ORDERED: AMINO ACID 10% IV SCH (17:00)
[2018-05-12] MEDS ORDERED: FAT EMUL IV SCH (17:00)
[2018-05-12] MEDS ORDERED: DEXTROSE 70% IV SCH (17:00)
[2018-05-12] MEDS ORDERED: SMOF TPN IV SCH (17:00)
[2018-05-12] MEDS ORDERED: [UNRECOGNIZED DRUG - OTHER] IV SCH (17:00)
[2018-05-12] MEDS ORDERED: POTASSIUM CHLORIDE PMX 100 ML IV ONE ×2 (18:30→23:45)
[2018-05-13] MEDS: BUMETANIDE IVPB SCH ×2 (00:38→09:27)
[2018-05-13] MEDS: DEXTROSE 5% IVPB SCH ×2 (00:38→09:27)
[2018-05-13] MEDS: ALBUTEROL/IPRATROPIUM 2.5MG/0.5MG, 3 ML INLINE SCH ×6 (02:00→23:00)
[2018-05-13] MEDS: MEROPENEM 1 GM in SODIUM CHLORIDE 0.9% 100 ML IV SCH ×3 (02:27→17:35)
[2018-05-13] MEDS: KSCALE TO 4.0 IV SCH ×4 (02:30→21:00)
[2018-05-13] MEDS: INSULIN LISPRO 100 UNITS/ML, PEN SQ-INSULIN SCH ×2 (03:00→09:00)
[2018-05-13] MEDS: ALBUMIN HUMAN 25% 100 ML IV SCH (03:43)
[2018-05-13] MEDS: ACETAMINOPHEN 650 MG SUPP PR PRN ×3 (03:56→23:21)
[2018-05-13 05:35] LABS: CHLORIDE 98 mmol/L (98-107)
[2018-05-13 05:36] LABS: MEAN PLATELET VOLUME 9.2 fL (7.4-10.4); RED CELL DISTRIBUTION WIDTH 15.2 % (9.4-14.8)
[2018-05-13 05:37] LABS: CREATININE 0.81 mg/dL (0.7-1.3); TRIGLYCERIDES 159 mg/dL (50-200)
[2018-05-13 05:45] LABS: ANION GAP 8 mmol/L (5-15)
[2018-05-13 05:52] LABS: MEAN CORPUSCULAR HEMOGLOBIN 33.3 pg (27.5-34.5); MEAN CORPUSCULAR VOLUME 98.1 fL (81-97); PLATELET COUNT 153 x10^3/uL (130-400); RED BLOOD COUNT 2.44 x10^6/uL (4.38-5.82)
[2018-05-13 06:14] LABS: MD YES
[2018-05-13 06:17] LABS: ANISOCYTOSIS 1+; EOS#(MANUAL) 0.29 x10^3/uL (0.0-0.4); EOS% (MANUAL) 3 % (1-7); LYMPH#(MANUAL) 1.25 x10^3/uL (1-3.4); LYMPHS% (MANUAL) 13 % (22-44); MONOS#(MANUAL) 0.38 x10^3/uL (0.3-2.7); MONOS% (MANUAL) 4 % (2-9); SEG#(MANUAL) 7.68 x10^3/uL (1.8-6.8); SEGS% (MANUAL) 80 % (42-75); TARGET CELLS 1+
[2018-05-13 06:18] LABS: <PLATELET ESTIMATE> ADEQUATE; <PLT MORPHOLOGY> NORMAL PLT MORPH
[2018-05-13 06:20] LABS: TOXIC GRAN 1+
[2018-05-13] MEDS ORDERED: POTASSIUM CHLORIDE PMX 100 ML IV ONE ×3 (06:30→22:00)
[2018-05-13] MEDS: PROPOFOL 100 ML IV PRN ×4 (06:38→23:20)
[2018-05-13] MEDS: SODIUM CHLORIDE FLUSH 10ML SYR IVF SCH ×2 (09:27→22:06)
[2018-05-13] MEDS: PANTOPRAZOLE 40 MG IV IVPush SCH (09:27)
[2018-05-13] MEDS: METHYLNALTREXONE 12 MG/0.6 ML SQ SCH (11:02)
[2018-05-13] MEDS: HEPARIN 5,000 UNITS/ML, 1ML SQ SCH ×2 (11:14→22:07)
[2018-05-13] MEDS: FAMOTIDINE 20 MG/2 ML IVPush SCH ×2 (13:32→23:20)
[2018-05-13] MEDS: NOREPINEPHRINE 16 MG in SODIUM CHLORIDE 0.9% 234 ML IV PRN (15:51)
[2018-05-13] MEDS ORDERED: DEXTROSE 70% IV SCH (17:00)
[2018-05-13] MEDS ORDERED: AMINO ACID 10% IV SCH (17:00)
[2018-05-13] MEDS ORDERED: FILTER, DISP 1.2 MICRON FOR TPN/PVN IV PRN (17:00)
[2018-05-13] MEDS ORDERED: SMOF TPN IV SCH (17:00)
[2018-05-13] MEDS ORDERED: [UNRECOGNIZED DRUG - OTHER] IV SCH (17:00)
[2018-05-13] MEDS ORDERED: FAT EMUL IV SCH (17:00)
[2018-05-13] MEDS: chlorPROMAZINE 25 MG/ML, 1ML IM PRN (17:36)
[2018-05-13] MEDS: VASOPRESSIN 100 UNIT in SODIUM CHLORIDE 0.9% 495 ML IV PRN (17:45)
[2018-05-13] MEDS: FENTANYL PF 2,500 MCG in SODIUM CHLORIDE 0.9% 200 ML IV PRN (20:35)
[2018-05-14] MEDS: MEROPENEM 1 GM in SODIUM CHLORIDE 0.9% 100 ML IV SCH ×3 (01:33→17:33)
[2018-05-14] MEDS: ALBUTEROL/IPRATROPIUM 2.5MG/0.5MG, 3 ML INLINE SCH ×6 (02:00→22:00)
[2018-05-14] MEDS: KSCALE TO 4.0 IV SCH ×4 (03:00→21:00)
[2018-05-14 03:19] LABS: MEAN CORPUSCULAR HEMOGLOBIN 33.8 pg (27.5-34.5); MEAN CORPUSCULAR HGB CONC 33.9 g/dL (33.2-36.2); MEAN CORPUSCULAR VOLUME 99.7 fL (81-97); MEAN PLATELET VOLUME 9.1 fL (7.4-10.4); PLATELET COUNT 295 x10^3/uL (130-400); RED BLOOD COUNT 2.66 x10^6/uL (4.38-5.82); RED CELL DISTRIBUTION WIDTH 15.3 % (9.4-14.8)
[2018-05-14 03:25] LABS: ANION GAP 9 mmol/L (5-15); CALCIUM 8.2 mg/dL (8.5-10.1); CHLORIDE 102 mmol/L (98-107); CREATININE 0.85 mg/dL (0.7-1.3)
[2018-05-14 03:34] LABS: BASOPHILS # (AUTO) 0.09 x10^3/uL (0-0.1); BASOPHILS % (AUTO) 1 % (0-1); EOSINOPHILS # (AUTO) 0.16 x10^3/uL (0-0.4); EOSINOPHILS % (AUTO) 1 % (1-7); LYMPHOCYTES # (AUTO) 0.79 x10^3/uL (1-3.4); LYMPHOCYTES % (AUTO) 6 % (22-44); MD SCAN; MONOCYTES # (AUTO) 0.51 x10^3/uL (0.2-0.8); MONOCYTES % (AUTO) 4 % (2-9); NEUTROPHILS # (AUTO) 12.47 x10^3/uL (1.8-6.8); NEUTROPHILS % (AUTO) 89 % (42-75)
[2018-05-14] MEDS ORDERED: POTASSIUM CHLORIDE PMX 100 ML IV ONE ×2 (04:00→10:30)
[2018-05-14] MEDS: HEPARIN 5,000 UNITS/ML, 1ML SQ SCH ×3 (04:25→20:16)
[2018-05-14] MEDS: PROPOFOL 100 ML IV PRN ×3 (05:17→20:17)
[2018-05-14] MEDS ORDERED: DEXMEDETOMIDINE 200 MCG in SODIUM CHLORIDE 0.9% 48 ML IV PRN (09:00)
[2018-05-14] MEDS ORDERED: DEXMEDETOMIDINE 1,000 MCG in SODIUM CHLORIDE 0.9% 240 ML IV PRN (09:00)
[2018-05-14] MEDS: INSULIN LISPRO 100 UNITS/ML, PEN SQ-INSULIN SCH (09:00)
[2018-05-14] MEDS: ACETAMINOPHEN 650 MG SUPP PR PRN ×2 (09:23→19:46)
[2018-05-14] MEDS ORDERED: AMINO ACID 10% IV SCH (10:00)
[2018-05-14] MEDS ORDERED: DEXTROSE 70% IV SCH (10:00)
[2018-05-14] MEDS ORDERED: FAT EMUL IV SCH (10:00)
[2018-05-14] MEDS ORDERED: SMOF TPN IV SCH (10:00)
[2018-05-14] MEDS ORDERED: [UNRECOGNIZED DRUG - OTHER] IV SCH (10:00)
[2018-05-14] MEDS: SODIUM CHLORIDE FLUSH 10ML SYR IVF SCH ×2 (10:41→21:58)
[2018-05-14] MEDS ORDERED: PHARMACOKINETIC CONSULTATION MC ONE (12:30)
[2018-05-14] MEDS ORDERED: PHARMACOKINETIC MONITORING MC PRN (12:30)
[2018-05-14] MEDS ORDERED: VANCOMYCIN PER PHARMACY MC PRN (12:30)
[2018-05-14] MEDS: FAMOTIDINE 20 MG/2 ML IVPush SCH ×2 (14:05→23:18)
[2018-05-14] MEDS: VANCOMYCIN 1,800 MG in SODIUM CHLORIDE 0.9% 250 ML IV SCH (14:06)
[2018-05-14] MEDS ORDERED: MIDAZOLAM HCL 25 MG in SODIUM CHLORIDE 0.9% 245 ML IV PRN (15:30)
[2018-05-14] MEDS ORDERED: OMNIPAQUE 350 MG/ML, 100ML BOTTLE ONE (15:52)
[2018-05-14] MEDS ORDERED: FILTER, DISP 1.2 MICRON FOR TPN/PVN IV PRN (17:00)
[2018-05-14] MEDS ORDERED: [UNRECOGNIZED DRUG - REMARK] MC ONE (18:00)
[2018-05-15] MEDS: PROPOFOL 100 ML IV PRN ×7 (00:17→22:51)
[2018-05-15] MEDS: VANCOMYCIN 1,800 MG in SODIUM CHLORIDE 0.9% 250 ML IV SCH ×2 (00:28→13:16)
[2018-05-15] MEDS: FENTANYL PF 2,500 MCG in SODIUM CHLORIDE 0.9% 200 ML IV PRN (00:30)
[2018-05-15] MEDS: ALBUTEROL/IPRATROPIUM 2.5MG/0.5MG, 3 ML INLINE SCH ×6 (02:00→22:00)
[2018-05-15] MEDS: MEROPENEM 1 GM in SODIUM CHLORIDE 0.9% 100 ML IV SCH ×3 (02:22→17:13)
[2018-05-15] MEDS: KSCALE TO 4.0 IV SCH ×4 (03:00→21:00)
[2018-05-15 03:15] LABS: MEAN CORPUSCULAR HEMOGLOBIN 33.7 pg (27.5-34.5); MEAN CORPUSCULAR HGB CONC 33.7 g/dL (33.2-36.2); MEAN CORPUSCULAR VOLUME 100.1 fL (81-97); MEAN PLATELET VOLUME 9.4 fL (7.4-10.4); PLATELET COUNT 335 x10^3/uL (130-400); RED BLOOD COUNT 2.53 x10^6/uL (4.38-5.82); RED CELL DISTRIBUTION WIDTH 15.3 % (9.4-14.8)
[2018-05-15 03:25] LABS: ALANINE AMINOTRANSFERASE 53 U/L (12-78); ALBUMIN 1.7 g/dL (3.4-5.0); ANION GAP 6 mmol/L (5-15); CALCIUM 7.9 mg/dL (8.5-10.1); CHLORIDE 111 mmol/L (98-107); CREATININE 0.69 mg/dL (0.7-1.3)
[2018-05-15 03:27] LABS: ALKALINE PHOSPHATASE 94 U/L (45-117); BILIRUBIN,TOTAL 1.4 mg/dL (0.2-1.0); TOTAL PROTEIN 5.8 g/dL (6.4-8.2)
[2018-05-15] MEDS: HEPARIN 5,000 UNITS/ML, 1ML SQ SCH ×3 (03:28→20:52)
[2018-05-15 03:33] LABS: BASOPHILS # (AUTO) 0.05 x10^3/uL (0-0.1); BASOPHILS % (AUTO) 0 % (0-1); EOSINOPHILS # (AUTO) 0.35 x10^3/uL (0-0.4); EOSINOPHILS % (AUTO) 2 % (1-7); LYMPHOCYTES # (AUTO) 0.96 x10^3/uL (1-3.4); LYMPHOCYTES % (AUTO) 6 % (22-44); MD SCAN; MONOCYTES # (AUTO) 0.74 x10^3/uL (0.2-0.8); MONOCYTES % (AUTO) 5 % (2-9); NEUTROPHILS # (AUTO) 13.38 x10^3/uL (1.8-6.8); NEUTROPHILS % (AUTO) 86 % (42-75)
[2018-05-15] MEDS: ACETAMINOPHEN 650 MG SUPP PR PRN ×2 (04:49→13:48)
[2018-05-15] MEDS: NOREPINEPHRINE 16 MG in SODIUM CHLORIDE 0.9% 234 ML IV PRN (07:24)
[2018-05-15] MEDS: METHYLNALTREXONE 12 MG/0.6 ML SQ SCH (10:40)
[2018-05-15] MEDS: SODIUM CHLORIDE FLUSH 10ML SYR IVF SCH ×2 (10:41→20:53)
[2018-05-15] MEDS: INSULIN LISPRO 100 UNITS/ML, PEN SQ-INSULIN SCH (10:45)
[2018-05-15] MEDS ORDERED: DEXTROSE 5% 1,000 ML IV ONE (11:00)
[2018-05-15] MEDS: MIDAZOLAM 1 MG/ML, 2ML IVPush PRN ×2 (11:21→20:52)
[2018-05-15] MEDS ORDERED: DEXTROSE 70% IV SCH (17:00)
[2018-05-15] MEDS ORDERED: AMINO ACID 10% IV SCH (17:00)
[2018-05-15] MEDS ORDERED: FAT EMUL IV SCH (17:00)
[2018-05-15] MEDS ORDERED: [UNRECOGNIZED DRUG - OTHER] IV SCH (17:00)
[2018-05-15] MEDS ORDERED: FILTER, DISP 1.2 MICRON FOR TPN/PVN IV PRN (17:00)
[2018-05-15] MEDS ORDERED: SMOF TPN IV SCH (17:00)
[2018-05-15] MEDS: LORazepam 2 MG/ML, 1ML IVPush PRN (22:51)
[2018-05-16] MEDS: VANCOMYCIN 1,800 MG in SODIUM CHLORIDE 0.9% 250 ML IV SCH ×2 (01:10→13:16)
[2018-05-16] MEDS: FENTANYL PF 2,500 MCG in SODIUM CHLORIDE 0.9% 200 ML IV PRN ×2 (01:10→17:37)
[2018-05-16] MEDS: ALBUTEROL/IPRATROPIUM 2.5MG/0.5MG, 3 ML INLINE SCH ×6 (02:00→21:55)
[2018-05-16] MEDS: MEROPENEM 1 GM in SODIUM CHLORIDE 0.9% 100 ML IV SCH ×3 (02:59→17:38)
[2018-05-16] MEDS: PROPOFOL 100 ML IV PRN ×7 (02:59→21:32)
[2018-05-16] MEDS: KSCALE TO 4.0 IV SCH ×2 (03:00→08:46)
[2018-05-16 03:41] LABS: ALANINE AMINOTRANSFERASE 53 U/L (12-78); ALBUMIN 1.5 g/dL (3.4-5.0); ANION GAP 8 mmol/L (5-15); CALCIUM 7.9 mg/dL (8.5-10.1); CHLORIDE 113 mmol/L (98-107); CREATININE 0.75 mg/dL (0.7-1.3)
[2018-05-16 03:43] LABS: ALKALINE PHOSPHATASE 105 U/L (45-117); BILIRUBIN,TOTAL 1.4 mg/dL (0.2-1.0); TOTAL PROTEIN 6.1 g/dL (6.4-8.2)
[2018-05-16 03:45] LABS: MEAN CORPUSCULAR HGB CONC 34.2 g/dL (33.2-36.2); MEAN CORPUSCULAR VOLUME 99.4 fL (81-97); MEAN PLATELET VOLUME 9.7 fL (7.4-10.4); PLATELET COUNT 421 x10^3/uL (130-400); RED BLOOD COUNT 2.47 x10^6/uL (4.38-5.82); RED CELL DISTRIBUTION WIDTH 15.9 % (9.4-14.8)
[2018-05-16 04:06] LABS: BASOPHILS % (AUTO) 1 % (0-1); EOSINOPHILS # (AUTO) 0.36 x10^3/uL (0-0.4); EOSINOPHILS % (AUTO) 2 % (1-7); LYMPHOCYTES # (AUTO) 1.28 x10^3/uL (1-3.4); LYMPHOCYTES % (AUTO) 7 % (22-44); MD SCAN; MONOCYTES # (AUTO) 1.04 x10^3/uL (0.2-0.8); MONOCYTES % (AUTO) 6 % (2-9); NEUTROPHILS # (AUTO) 15.65 x10^3/uL (1.8-6.8); NEUTROPHILS % (AUTO) 85 % (42-75)
[2018-05-16] MEDS: HEPARIN 5,000 UNITS/ML, 1ML SQ SCH ×3 (05:15→20:25)
[2018-05-16] MEDS: SODIUM CHLORIDE FLUSH 10ML SYR IVF SCH ×2 (08:52→20:26)
[2018-05-16] MEDS: INSULIN LISPRO 100 UNITS/ML, PEN SQ-INSULIN SCH (08:52)
[2018-05-16] MEDS: LORazepam 2 MG/ML, 1ML IVPush PRN (09:29)
[2018-05-16] MEDS: MICAFUNGIN 100 MG in SODIUM CHLORIDE 0.9% 100 ML IV SCH (10:29)
[2018-05-16] MEDS: ALBUMIN HUMAN 25% 100 ML IV SCH ×2 (10:31→22:57)
[2018-05-16] MEDS: FUROSEMIDE 40 MG/4 ML IV SCH (10:32)
[2018-05-16] MEDS: ACETAMINOPHEN 650 MG SUPP PR PRN (16:05)
[2018-05-16] MEDS ORDERED: FAT EMUL IV SCH (17:00)
[2018-05-16] MEDS ORDERED: DEXTROSE 70% IV SCH (17:00)
[2018-05-16] MEDS ORDERED: AMINO ACID 10% IV SCH (17:00)
[2018-05-16] MEDS ORDERED: SMOF TPN IV SCH (17:00)
[2018-05-16] MEDS ORDERED: FILTER, DISP 1.2 MICRON FOR TPN/PVN IV PRN (17:00)
[2018-05-16] MEDS ORDERED: [UNRECOGNIZED DRUG - OTHER] IV SCH (17:00)
[2018-05-16] MEDS ORDERED: INSULIN LISPRO 100 UNITS/ML, PEN SQ-INSULIN SCH (21:00)
[2018-05-16] MEDS: NOREPINEPHRINE 16 MG in SODIUM CHLORIDE 0.9% 234 ML IV PRN (21:32)
[2018-05-17] MEDS: FUROSEMIDE 40 MG/4 ML IV SCH ×2 (00:40→11:06)
[2018-05-17] MEDS: ALBUTEROL/IPRATROPIUM 2.5MG/0.5MG, 3 ML INLINE SCH ×6 (02:00→21:50)
[2018-05-17] MEDS: MEROPENEM 1 GM in SODIUM CHLORIDE 0.9% 100 ML IV SCH ×3 (02:16→17:08)
[2018-05-17] MEDS: ACETAMINOPHEN 650 MG SUPP PR PRN (03:49)
[2018-05-17] MEDS: LORazepam 2 MG/ML, 1ML IVPush PRN ×2 (03:49→20:32)
[2018-05-17] MEDS: HEPARIN 5,000 UNITS/ML, 1ML SQ SCH ×3 (03:50→20:40)
[2018-05-17 03:51] LABS: MEAN CORPUSCULAR HEMOGLOBIN 33.5 pg (27.5-34.5); MEAN CORPUSCULAR HGB CONC 33.8 g/dL (33.2-36.2); MEAN CORPUSCULAR VOLUME 99.3 fL (81-97); MEAN PLATELET VOLUME 9.5 fL (7.4-10.4); PLATELET COUNT 497 x10^3/uL (130-400); RED BLOOD COUNT 2.41 x10^6/uL (4.38-5.82); RED CELL DISTRIBUTION WIDTH 15.5 % (9.4-14.8)
[2018-05-17 04:02] LABS: ANION GAP 9 mmol/L (5-15); CALCIUM 8.2 mg/dL (8.5-10.1); CHLORIDE 113 mmol/L (98-107); CREATININE 0.69 mg/dL (0.7-1.3)
[2018-05-17 04:05] LABS: MD YES
[2018-05-17 04:08] LABS: BAND#(MANUAL) 0.19 x10^3/uL; BANDS%(MANUAL) 1 % (0-7); EOS#(MANUAL) 0.19 x10^3/uL (0.0-0.4); EOS% (MANUAL) 1 % (1-7); LYMPH#(MANUAL) 0.95 x10^3/uL (1-3.4); LYMPHS% (MANUAL) 5 % (22-44); MONOS#(MANUAL) 0.76 x10^3/uL (0.3-2.7); MONOS% (MANUAL) 4 % (2-9); SEG#(MANUAL) 16.72 x10^3/uL (1.8-6.8); SEGS% (MANUAL) 88 % (42-75)
[2018-05-17 04:11] LABS: <PLATELET ESTIMATE> ADEQUATE; <PLT MORPHOLOGY> NORMAL PLT MORPH; <RBC MORPHOLOGY> NORMAL; OTHER CELLS # (MANUAL) 0.19 x10^3/uL (0-0); OTHER CELLS % (MANUAL) 1 % (0-0)
[2018-05-17] MEDS: PROPOFOL 100 ML IV PRN ×7 (04:51→22:03)
[2018-05-17] MEDS: MIDAZOLAM 1 MG/ML, 2ML IVPush PRN (05:54)
[2018-05-17] MEDS ORDERED: VANCOMYCIN 1,800 MG in SODIUM CHLORIDE 0.9% 250 ML IV SCH (06:00)
[2018-05-17] MEDS: VANCOMYCIN 2,000 MG in SODIUM CHLORIDE 0.9% 500 ML IV SCH (06:30)
[2018-05-17] MEDS: SODIUM CHLORIDE FLUSH 10ML SYR IVF SCH ×2 (09:36→20:45)
[2018-05-17] MEDS: METHYLNALTREXONE 12 MG/0.6 ML SQ SCH (09:37)
[2018-05-17] MEDS: ALBUMIN HUMAN 25% 100 ML IV SCH ×2 (09:37→22:02)
[2018-05-17] MEDS: MICAFUNGIN 100 MG in SODIUM CHLORIDE 0.9% 100 ML IV SCH (09:37)
[2018-05-17] MEDS: DEXTROSE 5% 1,000 ML IV SCH (09:38)
[2018-05-17] MEDS ORDERED: OMNIPAQUE 350 MG/ML, 100ML BOTTLE ONE (13:58)
[2018-05-17] MEDS ORDERED: SMOF TPN IV SCH (17:00)
[2018-05-17] MEDS ORDERED: [UNRECOGNIZED DRUG - OTHER] IV SCH (17:00)
[2018-05-17] MEDS ORDERED: DEXTROSE 70% IV SCH (17:00)
[2018-05-17] MEDS ORDERED: FAT EMUL IV SCH (17:00)
[2018-05-17] MEDS ORDERED: AMINO ACID 10% IV SCH (17:00)
[2018-05-17] MEDS: FILTER, DISP 1.2 MICRON FOR TPN/PVN IV PRN (17:08)
[2018-05-17] MEDS: FENTANYL PF 2,500 MCG in SODIUM CHLORIDE 0.9% 200 ML IV PRN (18:43)
[2018-05-18] MEDS: FUROSEMIDE 40 MG/4 ML IV SCH ×2 (00:14→13:34)
[2018-05-18] MEDS: VANCOMYCIN 2,000 MG in SODIUM CHLORIDE 0.9% 500 ML IV SCH (00:41)
[2018-05-18] MEDS: PROPOFOL 100 ML IV PRN ×7 (01:26→21:45)
[2018-05-18] MEDS: LORazepam 2 MG/ML, 1ML IVPush PRN ×3 (01:34→20:45)
[2018-05-18] MEDS: ACETAMINOPHEN 650 MG SUPP PR PRN ×2 (01:40→22:00)
[2018-05-18] MEDS: ALBUTEROL/IPRATROPIUM 2.5MG/0.5MG, 3 ML INLINE SCH ×6 (02:26→22:52)
[2018-05-18] MEDS: DEXTROSE 5% 1,000 ML IV SCH (02:46)
[2018-05-18] MEDS: MEROPENEM 1 GM in SODIUM CHLORIDE 0.9% 100 ML IV SCH ×3 (03:11→17:24)
[2018-05-18 04:33] LABS: MEAN CORPUSCULAR HEMOGLOBIN 32.7 pg (27.5-34.5); MEAN CORPUSCULAR HGB CONC 33.4 g/dL (33.2-36.2); MEAN PLATELET VOLUME 9.5 fL (7.4-10.4); PLATELET COUNT 528 x10^3/uL (130-400); RED BLOOD COUNT 2.28 x10^6/uL (4.38-5.82); RED CELL DISTRIBUTION WIDTH 15.1 % (9.4-14.8)
[2018-05-18 04:35] LABS: ANION GAP 10 mmol/L (5-15); CALCIUM 8.1 mg/dL (8.5-10.1); CHLORIDE 110 mmol/L (98-107)
[2018-05-18 04:43] LABS: ALANINE AMINOTRANSFERASE 70 U/L (12-78); ALKALINE PHOSPHATASE 129 U/L (45-117); BILIRUBIN,TOTAL 1.7 mg/dL (0.2-1.0); CREATININE 0.73 mg/dL (0.7-1.3); PREALBUMIN 4.6 mg/dL (20.0-40.0); TOTAL PROTEIN 6.3 g/dL (6.4-8.2); TRIGLYCERIDES 166 mg/dL (50-200)
[2018-05-18 04:45] LABS: MD YES
[2018-05-18 04:51] LABS: <PLATELET ESTIMATE> INCREASED; <PLT MORPHOLOGY> NORMAL PLT MORPH; <RBC MORPHOLOGY> NORMAL; BAND#(MANUAL) 0.16 x10^3/uL; BANDS%(MANUAL) 1 % (0-7); EOS#(MANUAL) 0.16 x10^3/uL (0.0-0.4); EOS% (MANUAL) 1 % (1-7); LYMPH#(MANUAL) 1.14 x10^3/uL (1-3.4); LYMPHS% (MANUAL) 7 % (22-44); MONOS#(MANUAL) 0.33 x10^3/uL (0.3-2.7); MONOS% (MANUAL) 2 % (2-9); SEG#(MANUAL) 14.51 x10^3/uL (1.8-6.8); SEGS% (MANUAL) 89 % (42-75)
[2018-05-18] MEDS: HEPARIN 5,000 UNITS/ML, 1ML SQ SCH ×3 (05:15→20:45)
[2018-05-18] MEDS ORDERED: VANCOMYCIN PER PHARMACY MC PRN (08:00)
[2018-05-18] MEDS ORDERED: PHARMACOKINETIC MONITORING MC PRN (08:30)
[2018-05-18] MEDS ORDERED: PHARMACOKINETIC CONSULTATION MC ONE (08:30)
[2018-05-18] MEDS: INSULIN LISPRO 100 UNITS/ML, PEN SQ-INSULIN SCH (09:05)
[2018-05-18] MEDS: SODIUM CHLORIDE FLUSH 10ML SYR IVF SCH ×2 (09:05→20:45)
[2018-05-18] MEDS: MICAFUNGIN 100 MG in SODIUM CHLORIDE 0.9% 100 ML IV SCH (10:07)
[2018-05-18] MEDS ORDERED: LIDOCAINE-MPF 1%, 5ML ONE (10:52)
[2018-05-18] MEDS: ALBUMIN HUMAN 25% 100 ML IV SCH ×2 (12:46→22:56)
[2018-05-18] MEDS ORDERED: STERILE WATER IV SCH (17:00)
[2018-05-18] MEDS ORDERED: AMINO ACID 10% IV SCH (17:00)
[2018-05-18] MEDS ORDERED: DEXTROSE 70% IV SCH (17:00)
[2018-05-18] MEDS ORDERED: [UNRECOGNIZED DRUG - OTHER] IV SCH (17:00)
[2018-05-18] MEDS ORDERED: VANCOMYCIN 2,000 MG in SODIUM CHLORIDE 0.9% 500 ML IV SCH (18:00)
[2018-05-19] MEDS: FUROSEMIDE 40 MG/4 ML IV SCH ×4 (00:31→23:16)
[2018-05-19] MEDS: MEROPENEM 1 GM in SODIUM CHLORIDE 0.9% 100 ML IV SCH ×3 (01:27→18:34)
[2018-05-19] MEDS: LORazepam 2 MG/ML, 1ML IVPush PRN (01:27)
[2018-05-19] MEDS: PROPOFOL 100 ML IV PRN ×8 (01:27→22:19)
[2018-05-19] MEDS: ALBUTEROL/IPRATROPIUM 2.5MG/0.5MG, 3 ML INLINE SCH ×6 (02:26→22:08)
[2018-05-19] MEDS: HEPARIN 5,000 UNITS/ML, 1ML SQ SCH ×3 (04:12→19:20)
[2018-05-19 04:35] LABS: ANION GAP 9 mmol/L (5-15); CHLORIDE 109 mmol/L (98-107)
[2018-05-19 04:43] LABS: CREATININE 0.93 mg/dL (0.7-1.3)
[2018-05-19 04:57] LABS: VANCOMYCIN,TROUGH 26.5 mcg/mL (5.0-10.0)
[2018-05-19 05:22] LABS: MEAN CORPUSCULAR HEMOGLOBIN 33.2 pg (27.5-34.5); MEAN CORPUSCULAR HGB CONC 34.1 g/dL (33.2-36.2); MEAN CORPUSCULAR VOLUME 97.3 fL (81-97); MEAN PLATELET VOLUME 9.4 fL (7.4-10.4); PLATELET COUNT 598 x10^3/uL (130-400); RED BLOOD COUNT 2.13 x10^6/uL (4.38-5.82); RED CELL DISTRIBUTION WIDTH 15.4 % (9.4-14.8)
[2018-05-19 06:03] LABS: MD YES
[2018-05-19 06:06] LABS: BAND#(MANUAL) 0.16 x10^3/uL; BANDS%(MANUAL) 1 % (0-7); EOS#(MANUAL) 0.16 x10^3/uL (0.0-0.4); EOS% (MANUAL) 1 % (1-7); LYMPH#(MANUAL) 1.24 x10^3/uL (1-3.4); LYMPHS% (MANUAL) 8 % (22-44); MONOS#(MANUAL) 0.16 x10^3/uL (0.3-2.7); MONOS% (MANUAL) 1 % (2-9); SEGS% (MANUAL) 89 % (42-75)
[2018-05-19 06:08] LABS: <PLATELET ESTIMATE> INCREASED; <PLT MORPHOLOGY> NORMAL PLT MORPH; ANISOCYTOSIS 1+; HYPOCHROMIA 1+; POLYCHROMASIA 1+
[2018-05-19] MEDS: INSULIN LISPRO 100 UNITS/ML, PEN SQ-INSULIN SCH (09:00)
[2018-05-19] MEDS: SODIUM CHLORIDE FLUSH 10ML SYR IVF SCH ×2 (10:14→19:21)
[2018-05-19] MEDS: MICAFUNGIN 100 MG in SODIUM CHLORIDE 0.9% 100 ML IV SCH (10:48)
[2018-05-19] MEDS: ALBUMIN HUMAN 25% 100 ML IV SCH ×2 (12:00→21:33)
[2018-05-19] MEDS: METHYLNALTREXONE 12 MG/0.6 ML SQ SCH (12:19)
[2018-05-19] MEDS: FENTANYL PF 2,500 MCG in SODIUM CHLORIDE 0.9% 200 ML IV PRN (12:19)
[2018-05-19] MEDS ORDERED: AMINO ACID 10% IV SCH (17:00)
[2018-05-19] MEDS ORDERED: DEXTROSE 70% IV SCH (17:00)
[2018-05-19] MEDS ORDERED: [UNRECOGNIZED DRUG - OTHER] IV SCH (17:00)
[2018-05-19] MEDS ORDERED: STERILE WATER IV SCH (17:00)
[2018-05-19] MEDS: FILTER, DISP 1.2 MICRON FOR TPN/PVN IV PRN (17:06)
[2018-05-19] MEDS: VANCOMYCIN 2,000 MG in SODIUM CHLORIDE 0.9% 500 ML IV SCH (19:21)
[2018-05-19] MEDS: ACETAMINOPHEN 650 MG SUPP PR PRN (19:27)
[2018-05-20] VITALS (10 sets, daily range): BP systolic 117–135; BP diastolic 62–76
[2018-05-20] MEDS: MEROPENEM 1 GM in SODIUM CHLORIDE 0.9% 100 ML IV SCH ×3 (00:37→17:49)
[2018-05-20] MEDS: ACETAMINOPHEN 650 MG SUPP PR PRN ×2 (01:26→19:41)
[2018-05-20] MEDS: ALBUTEROL/IPRATROPIUM 2.5MG/0.5MG, 3 ML INLINE SCH ×6 (02:22→22:01)
[2018-05-20] MEDS: PROPOFOL 100 ML IV PRN ×6 (04:23→21:58)
[2018-05-20] MEDS: HEPARIN 5,000 UNITS/ML, 1ML SQ SCH ×3 (04:23→19:14)
[2018-05-20 05:15] LABS: MEAN CORPUSCULAR HEMOGLOBIN 33.6 pg (27.5-34.5); MEAN CORPUSCULAR HGB CONC 34.4 g/dL (33.2-36.2); MEAN CORPUSCULAR VOLUME 97.7 fL (81-97); MEAN PLATELET VOLUME 8.9 fL (7.4-10.4); PLATELET COUNT 596 x10^3/uL (130-400)
[2018-05-20 05:34] LABS: CHLORIDE 108 mmol/L (98-107)
[2018-05-20 05:38] LABS: MD YES
[2018-05-20 05:39] LABS: BAND#(MANUAL) 0.26 x10^3/uL; BANDS%(MANUAL) 2 % (0-7); EOS#(MANUAL) 0.13 x10^3/uL (0.0-0.4); EOS% (MANUAL) 1 % (1-7); LYMPH#(MANUAL) 1.43 x10^3/uL (1-3.4); LYMPHS% (MANUAL) 11 % (22-44); MONOS#(MANUAL) 0.13 x10^3/uL (0.3-2.7); MONOS% (MANUAL) 1 % (2-9); SEG#(MANUAL) 11.05 x10^3/uL (1.8-6.8); SEGS% (MANUAL) 85 % (42-75)
[2018-05-20 05:41] LABS: <PLATELET ESTIMATE> INCREASED; <PLT MORPHOLOGY> NORMAL PLT MORPH; ANION GAP 8 mmol/L (5-15); ANISOCYTOSIS 1+; CALCIUM 8.3 mg/dL (8.5-10.1); CREATININE 0.86 mg/dL (0.7-1.3); HYPOCHROMIA 1+; POLYCHROMASIA 1+
[2018-05-20] MEDS: INSULIN LISPRO 100 UNITS/ML, PEN SQ-INSULIN SCH (09:00)
[2018-05-20] MEDS: SODIUM CHLORIDE FLUSH 10ML SYR IVF SCH ×2 (09:55→21:50)
[2018-05-20] MEDS: MICAFUNGIN 100 MG in SODIUM CHLORIDE 0.9% 100 ML IV SCH (11:21)
[2018-05-20 11:58] LABS: VANCOMYCIN,TROUGH 16.1 mcg/mL (5.0-10.0)
[2018-05-20] MEDS: ALBUMIN HUMAN 25% 100 ML IV SCH ×2 (12:39→21:50)
[2018-05-20] MEDS: MIDAZOLAM 1 MG/ML, 2ML IVPush PRN (12:41)
[2018-05-20] MEDS: VANCOMYCIN 2,000 MG in SODIUM CHLORIDE 0.9% 500 ML IV SCH (13:04)
[2018-05-20] MEDS: FUROSEMIDE 40 MG/4 ML IV SCH ×2 (13:04→23:06)
[2018-05-20] MEDS: FILTER, DISP 1.2 MICRON FOR TPN/PVN IV PRN (16:54)
[2018-05-20] MEDS ORDERED: STERILE WATER IV SCH (17:00)
[2018-05-20] MEDS ORDERED: DEXTROSE 70% IV SCH (17:00)
[2018-05-20] MEDS ORDERED: AMINO ACID 10% IV SCH (17:00)
[2018-05-20] MEDS ORDERED: [UNRECOGNIZED DRUG - OTHER] IV SCH (17:00)
[2018-05-20] MEDS: FENTANYL PF 100 MCG/2ML IVPush PRN (22:22)
[2018-05-21] MEDS: PROPOFOL 100 ML IV PRN ×8 (01:32→23:11)
[2018-05-21] MEDS: MEROPENEM 1 GM in SODIUM CHLORIDE 0.9% 100 ML IV SCH ×3 (01:32→17:19)
[2018-05-21] MEDS: ACETAMINOPHEN 650 MG SUPP PR PRN (01:33)
[2018-05-21] MEDS: FENTANYL PF 100 MCG/2ML IVPush PRN ×2 (02:06→08:39)
[2018-05-21] MEDS: ALBUTEROL/IPRATROPIUM 2.5MG/0.5MG, 3 ML INLINE SCH ×6 (02:11→22:07)
[2018-05-21] MEDS: HEPARIN 5,000 UNITS/ML, 1ML SQ SCH ×3 (03:44→20:38)
[2018-05-21 04:58] LABS: ANION GAP 10 mmol/L (5-15); CALCIUM 8.1 mg/dL (8.5-10.1); CHLORIDE 109 mmol/L (98-107); CREATININE 0.79 mg/dL (0.7-1.3)
[2018-05-21] MEDS: INSULIN LISPRO 100 UNITS/ML, PEN SQ-INSULIN SCH (05:00)
[2018-05-21 05:08] LABS: MEAN CORPUSCULAR HEMOGLOBIN 31.8 pg (27.5-34.5); MEAN CORPUSCULAR HGB CONC 33.4 g/dL (33.2-36.2); MEAN CORPUSCULAR VOLUME 95.1 fL (81-97); MEAN PLATELET VOLUME 8.9 fL (7.4-10.4); PLATELET COUNT 647 x10^3/uL (130-400); RED BLOOD COUNT 2.48 x10^6/uL (4.38-5.82); RED CELL DISTRIBUTION WIDTH 16.9 % (9.4-14.8)
[2018-05-21 05:28] LABS: MD YES
[2018-05-21 05:29] LABS: LYMPHS% (MANUAL) 8 % (22-44); MONOS#(MANUAL) 1.23 x10^3/uL (0.3-2.7); MONOS% (MANUAL) 9 % (2-9); SEG#(MANUAL) 11.37 x10^3/uL (1.8-6.8); SEGS% (MANUAL) 83 % (42-75)
[2018-05-21 05:30] LABS: ANISOCYTOSIS 1+; POLYCHROMASIA 1+
[2018-05-21 05:31] LABS: <PLATELET ESTIMATE> INCREASED; <PLT MORPHOLOGY> NORMAL PLT MORPH
[2018-05-21] MEDS: VANCOMYCIN 2,000 MG in SODIUM CHLORIDE 0.9% 500 ML IV SCH (05:42)
[2018-05-21] MEDS: SODIUM CHLORIDE FLUSH 10ML SYR IVF SCH ×2 (08:05→20:38)
[2018-05-21] MEDS: RISPERIDONE 1 MG/ML ORAL SOLN NG SCH ×2 (09:30→20:38)
[2018-05-21] MEDS: ALBUMIN HUMAN 25% 100 ML IV SCH ×2 (10:40→22:44)
[2018-05-21] MEDS: MICAFUNGIN 100 MG in SODIUM CHLORIDE 0.9% 100 ML IV SCH (10:40)
[2018-05-21] MEDS: ACETAMINOPHEN 650 MG/20.3 ML UDC PO PRN (13:18)
[2018-05-21] MEDS: FUROSEMIDE 40 MG/4 ML IV SCH (13:19)
[2018-05-21] MEDS: METHYLNALTREXONE 12 MG/0.6 ML SQ SCH (13:19)
[2018-05-21] MEDS ORDERED: AMIODARONE 150 MG in DEXTROSE 5% 100 ML IVPB ONE (14:43)
[2018-05-21] MEDS: FILTER 0.22 MICRON IV PRN (14:56)
[2018-05-21] MEDS ORDERED: METOPROLOL 1 MG/ML, 5ML ONE (15:26)
[2018-05-21] MEDS ORDERED: METOPROLOL 1 MG/ML, 5ML IVPush ONE (15:30)
[2018-05-21] MEDS ORDERED: DEXTROSE 70% IV SCH ×2 (17:00)
[2018-05-21] MEDS ORDERED: AMINO ACID 10% IV SCH ×2 (17:00)
[2018-05-21] MEDS ORDERED: [UNRECOGNIZED DRUG - OTHER] IV SCH (17:00)
[2018-05-21] MEDS ORDERED: [UNRECOGNIZED DRUG - OTHER] IV SCH (17:00)
[2018-05-21] MEDS ORDERED: STERILE WATER IV SCH ×2 (17:00)
[2018-05-21] MEDS: FILTER, DISP 1.2 MICRON FOR TPN/PVN IV PRN (17:20)
[2018-05-22] MEDS: PROPOFOL 100 ML IV PRN ×7 (01:12→21:01)
[2018-05-22] MEDS: ALBUTEROL/IPRATROPIUM 2.5MG/0.5MG, 3 ML INLINE SCH ×6 (02:00→22:35)
[2018-05-22] MEDS: MEROPENEM 1 GM in SODIUM CHLORIDE 0.9% 100 ML IV SCH ×3 (04:38→17:36)
[2018-05-22] MEDS: HEPARIN 5,000 UNITS/ML, 1ML SQ SCH ×3 (04:43→21:01)
[2018-05-22] MEDS: FENTANYL PF 100 MCG/2ML IVPush PRN ×3 (04:47→12:43)
[2018-05-22 05:26] LABS: MEAN CORPUSCULAR HEMOGLOBIN 32.8 pg (27.5-34.5); MEAN CORPUSCULAR HGB CONC 34.5 g/dL (33.2-36.2); MEAN PLATELET VOLUME 8.5 fL (7.4-10.4); PLATELET COUNT 708 x10^3/uL (130-400); RED BLOOD COUNT 2.41 x10^6/uL (4.38-5.82); RED CELL DISTRIBUTION WIDTH 15.9 % (9.4-14.8)
[2018-05-22 05:31] LABS: ANION GAP 8 mmol/L (5-15); CALCIUM 8.3 mg/dL (8.5-10.1); CHLORIDE 108 mmol/L (98-107)
[2018-05-22 05:32] LABS: CREATININE 0.77 mg/dL (0.7-1.3); TRIGLYCERIDES 186 mg/dL (50-200)
[2018-05-22 06:01] LABS: MD YES
[2018-05-22 06:03] LABS: <PLATELET ESTIMATE> INCREASED; <PLT MORPHOLOGY> NORMAL PLT MORPH; ANISOCYTOSIS 1+; BAND#(MANUAL) 0.31 x10^3/uL; BANDS%(MANUAL) 2 % (0-7); EOS#(MANUAL) 0.15 x10^3/uL (0.0-0.4); EOS% (MANUAL) 1 % (1-7); LYMPH#(MANUAL) 0.92 x10^3/uL (1-3.4); LYMPHS% (MANUAL) 6 % (22-44); METAMYELOCYTES# (MANUAL) 0.31 x10^3/uL (0-0); METAMYELOCYTES% (MANUAL) 2 % (0-1); MONOS#(MANUAL) 0.31 x10^3/uL (0.3-2.7); MONOS% (MANUAL) 2 % (2-9); POLYCHROMASIA 1+; SEGS% (MANUAL) 87 % (42-75)
[2018-05-22] MEDS: SODIUM CHLORIDE FLUSH 10ML SYR IVF SCH ×2 (09:12→21:01)
[2018-05-22] MEDS: MICAFUNGIN 100 MG in SODIUM CHLORIDE 0.9% 100 ML IV SCH (09:13)
[2018-05-22] MEDS: RISPERIDONE 1 MG/ML ORAL SOLN NG SCH ×2 (09:13→21:01)
[2018-05-22] MEDS: INSULIN LISPRO 100 UNITS/ML, PEN SQ-INSULIN SCH (09:17)
[2018-05-22] MEDS: ALBUMIN HUMAN 25% 100 ML IV SCH ×2 (09:22→22:16)
[2018-05-22] MEDS: ACETAMINOPHEN 650 MG/20.3 ML UDC PO PRN ×2 (09:23→15:47)
[2018-05-22] MEDS: MIDAZOLAM 1 MG/ML, 2ML IVPush PRN (09:23)
[2018-05-22] MEDS: AMIODARONE 900 MG in DEXTROSE 5% 482 ML IV PRN (10:50)
[2018-05-22] MEDS: FUROSEMIDE 40 MG/4 ML IV SCH ×3 (10:50→23:47)
[2018-05-22] MEDS: VANCOMYCIN 2,000 MG in SODIUM CHLORIDE 0.9% 500 ML IV SCH ×2 (17:36)
[2018-05-23] MEDS: PROPOFOL 100 ML IV PRN (01:20)
[2018-05-23] MEDS: ALBUTEROL/IPRATROPIUM 2.5MG/0.5MG, 3 ML INLINE SCH ×2 (02:07→06:30)
[2018-05-23] MEDS: FENTANYL PF 100 MCG/2ML IVPush PRN ×5 (02:45→23:45)
[2018-05-23] MEDS: ACETAMINOPHEN 650 MG/20.3 ML UDC PO PRN ×3 (02:45→20:09)
[2018-05-23] MEDS: MEROPENEM 1 GM in SODIUM CHLORIDE 0.9% 100 ML IV SCH ×3 (02:52→17:31)
[2018-05-23] MEDS: HEPARIN 5,000 UNITS/ML, 1ML SQ SCH ×3 (04:28→20:08)
[2018-05-23 08:49] LABS: MD YES; MEAN CORPUSCULAR HGB CONC 34.9 g/dL (33.2-36.2); MEAN CORPUSCULAR VOLUME 94.7 fL (81-97); MEAN PLATELET VOLUME 8.6 fL (7.4-10.4); PLATELET COUNT 722 x10^3/uL (130-400); RED BLOOD COUNT 2.47 x10^6/uL (4.38-5.82); RED CELL DISTRIBUTION WIDTH 15.6 % (9.4-14.8)
[2018-05-23 08:56] LABS: ANION GAP 7 mmol/L (5-15); CHLORIDE 106 mmol/L (98-107)
[2018-05-23] MEDS: SODIUM CHLORIDE FLUSH 10ML SYR IVF SCH ×2 (09:00→20:09)
[2018-05-23] MEDS: RISPERIDONE 1 MG/ML ORAL SOLN NG SCH (09:00)
[2018-05-23] MEDS: INSULIN LISPRO 100 UNITS/ML, PEN SQ-INSULIN SCH (09:00)
[2018-05-23 09:36] LABS: <PLATELET ESTIMATE> INCREASED; <PLT MORPHOLOGY> NORMAL PLT MORPH; ANISOCYTOSIS 1+; BASOS#(MANUAL) 0.16 x10^3/uL (0-0.1); BASOS% (MANUAL) 1 % (0-1); EOS#(MANUAL) 0.16 x10^3/uL (0.0-0.4); EOS% (MANUAL) 1 % (1-7); LYMPH#(MANUAL) 0.96 x10^3/uL (1-3.4); LYMPHS% (MANUAL) 6 % (22-44); METAMYELOCYTES# (MANUAL) 0.16 x10^3/uL (0-0); METAMYELOCYTES% (MANUAL) 1 % (0-1); MONOS#(MANUAL) 0.96 x10^3/uL (0.3-2.7); MONOS% (MANUAL) 6 % (2-9); POLYCHROMASIA 1+; SEGS% (MANUAL) 85 % (42-75)
[2018-05-23] MEDS: FAMOTIDINE 20 MG/2 ML IVPush SCH ×2 (10:00→21:10)
[2018-05-23] MEDS: ALBUMIN HUMAN 25% 100 ML IV SCH ×2 (10:00→22:11)
[2018-05-23] MEDS: METHYLNALTREXONE 12 MG/0.6 ML SQ SCH (10:00)
[2018-05-23] MEDS ORDERED: ALBUTEROL/IPRATROPIUM 2.5MG/0.5MG, 3 ML NPPB PRN (11:00)
[2018-05-23] MEDS: FUROSEMIDE 40 MG/4 ML IV SCH (11:31)
[2018-05-23] MEDS: MICAFUNGIN 100 MG in SODIUM CHLORIDE 0.9% 100 ML IV SCH (11:43)
[2018-05-23] MEDS: VANCOMYCIN 2,000 MG in SODIUM CHLORIDE 0.9% 500 ML IV SCH (12:59)
[2018-05-23] MEDS ORDERED: POTASSIUM CHLORIDE 10% 20 MEQ/15 ML UDC PO ONE (15:30)
[2018-05-23] MEDS: METOPROLOL TARTRATE 25 MG TABLET NG SCH (15:32)
[2018-05-23] MEDS: AMIODARONE 900 MG in DEXTROSE 5% 482 ML IV PRN (15:46)
[2018-05-24] MEDS: ACETAMINOPHEN 650 MG/20.3 ML UDC PO PRN ×4 (01:57→23:01)
[2018-05-24] MEDS: MEROPENEM 1 GM in SODIUM CHLORIDE 0.9% 100 ML IV SCH ×3 (01:57→18:11)
[2018-05-24] MEDS: METOPROLOL TARTRATE 25 MG TABLET NG SCH ×2 (02:06→15:49)
[2018-05-24] MEDS: HEPARIN 5,000 UNITS/ML, 1ML SQ SCH (04:04)
[2018-05-24 06:21] LABS: MEAN CORPUSCULAR HEMOGLOBIN 31.8 pg (27.5-34.5); MEAN CORPUSCULAR HGB CONC 33.5 g/dL (33.2-36.2); MEAN CORPUSCULAR VOLUME 95.1 fL (81-97); MEAN PLATELET VOLUME 8.4 fL (7.4-10.4); PLATELET COUNT 802 x10^3/uL (130-400); RED BLOOD COUNT 2.36 x10^6/uL (4.38-5.82); RED CELL DISTRIBUTION WIDTH 15.8 % (9.4-14.8)
[2018-05-24 06:33] LABS: ANION GAP 8 mmol/L (5-15); CALCIUM 8.4 mg/dL (8.5-10.1); CHLORIDE 110 mmol/L (98-107); CREATININE 0.76 mg/dL (0.7-1.3)
[2018-05-24 06:35] LABS: VANCOMYCIN,TROUGH 15.7 mcg/mL (5.0-10.0)
[2018-05-24 06:41] LABS: MD YES
[2018-05-24 06:44] LABS: <PLATELET ESTIMATE> INCREASED; <PLT MORPHOLOGY> NORMAL PLT MORPH; ANISOCYTOSIS 1+; BAND#(MANUAL) 0.15 x10^3/uL; BANDS%(MANUAL) 1 % (0-7); EOS#(MANUAL) 0.44 x10^3/uL (0.0-0.4); EOS% (MANUAL) 3 % (1-7); LYMPH#(MANUAL) 1.03 x10^3/uL (1-3.4); LYMPHS% (MANUAL) 7 % (22-44); MONOS#(MANUAL) 0.44 x10^3/uL (0.3-2.7); MONOS% (MANUAL) 3 % (2-9); SEG#(MANUAL) 12.64 x10^3/uL (1.8-6.8); SEGS% (MANUAL) 86 % (42-75)
[2018-05-24] MEDS: VANCOMYCIN 2,000 MG in SODIUM CHLORIDE 0.9% 500 ML IV SCH (07:22)
[2018-05-24] MEDS: INSULIN LISPRO 100 UNITS/ML, PEN SQ-INSULIN SCH (09:00)
[2018-05-24] MEDS: FENTANYL PF 100 MCG/2ML IVPush PRN ×2 (09:11→15:58)
[2018-05-24] MEDS: SODIUM CHLORIDE FLUSH 10ML SYR IVF SCH ×2 (09:24→21:17)
[2018-05-24] MEDS: FAMOTIDINE 20 MG/2 ML IVPush SCH ×2 (09:24→21:17)
[2018-05-24] MEDS ORDERED: HEPARIN 5,000 UNITS/ML, 1ML IV ONE (09:30)
[2018-05-24] MEDS: HEPARIN 25,000 UNITS/500ML PMX 500 ML IV PRN (09:53)
[2018-05-24] MEDS: ALBUMIN HUMAN 25% 100 ML IV SCH ×2 (11:56→21:18)
[2018-05-24] MEDS: FUROSEMIDE 40 MG/4 ML IV SCH ×3 (13:01→23:22)
[2018-05-24] MEDS: MICAFUNGIN 100 MG in SODIUM CHLORIDE 0.9% 100 ML IV SCH (13:02)
[2018-05-24] MEDS: HEPARIN 5,000 UNITS/ML, 1ML IV PRN (17:13)
[2018-05-24] MEDS: AMIODARONE 900 MG in DEXTROSE 5% 482 ML IV PRN (18:12)
[2018-05-24] MEDS: FILTER 0.22 MICRON IV PRN (18:12)
[2018-05-25] MEDS ORDERED: FUROSEMIDE 40 MG/4 ML IV ONE (01:00)
[2018-05-25] MEDS: HEPARIN 5,000 UNITS/ML, 1ML IV PRN ×3 (01:07→17:49)
[2018-05-25] MEDS: METOPROLOL 1 MG/ML, 5ML IVPush PRN ×2 (01:15→14:37)
[2018-05-25] MEDS: MEROPENEM 1 GM in SODIUM CHLORIDE 0.9% 100 ML IV SCH ×3 (01:56→17:48)
[2018-05-25] MEDS: VANCOMYCIN 1,800 MG in SODIUM CHLORIDE 0.9% 250 ML IV SCH ×2 (02:56→19:34)
[2018-05-25] MEDS: METOPROLOL TARTRATE 25 MG TABLET NG SCH ×2 (03:42→15:30)
[2018-05-25 04:35] LABS: ALBUMIN 2.7 g/dL (3.4-5.0); ANION GAP 8 mmol/L (5-15); CALCIUM 8.3 mg/dL (8.5-10.1); CHLORIDE 111 mmol/L (98-107)
[2018-05-25 04:36] LABS: MEAN CORPUSCULAR HEMOGLOBIN 31.6 pg (27.5-34.5); MEAN CORPUSCULAR HGB CONC 33.1 g/dL (33.2-36.2); MEAN CORPUSCULAR VOLUME 95.6 fL (81-97); MEAN PLATELET VOLUME 8.3 fL (7.4-10.4); PLATELET COUNT 912 x10^3/uL (130-400); RED BLOOD COUNT 2.23 x10^6/uL (4.38-5.82); RED CELL DISTRIBUTION WIDTH 15.2 % (9.4-14.8)
[2018-05-25 04:38] LABS: ALANINE AMINOTRANSFERASE 91 U/L (12-78); ALKALINE PHOSPHATASE 154 U/L (45-117); BILIRUBIN,TOTAL 1.3 mg/dL (0.2-1.0); CREATININE 0.79 mg/dL (0.7-1.3); TOTAL PROTEIN 7.6 g/dL (6.4-8.2)
[2018-05-25] MEDS: HEPARIN 25,000 UNITS/500ML PMX 500 ML IV PRN ×2 (04:57→19:02)
[2018-05-25 05:48] LABS: MD YES
[2018-05-25 05:49] LABS: BAND#(MANUAL) 0.17 x10^3/uL; BANDS%(MANUAL) 1 % (0-7); EOS#(MANUAL) 0.17 x10^3/uL (0.0-0.4); EOS% (MANUAL) 1 % (1-7); LYMPH#(MANUAL) 1.74 x10^3/uL (1-3.4); LYMPHS% (MANUAL) 10 % (22-44); MONOS#(MANUAL) 1.04 x10^3/uL (0.3-2.7); MONOS% (MANUAL) 6 % (2-9); SEG#(MANUAL) 14.27 x10^3/uL (1.8-6.8); SEGS% (MANUAL) 82 % (42-75)
[2018-05-25 05:50] LABS: <PLATELET ESTIMATE> INCREASED; ANISOCYTOSIS 1+; POLYCHROMASIA 1+
[2018-05-25 05:51] LABS: <PLT MORPHOLOGY> NORMAL PLT MORPH
[2018-05-25] MEDS: SODIUM CHLORIDE FLUSH 10ML SYR IVF SCH ×2 (08:07→21:05)
[2018-05-25] MEDS: FAMOTIDINE 20 MG/2 ML IVPush SCH ×2 (08:07→21:06)
[2018-05-25] MEDS: INSULIN LISPRO 100 UNITS/ML, PEN SQ-INSULIN SCH (08:11)
[2018-05-25] MEDS: ACETAMINOPHEN 650 MG/20.3 ML UDC PO PRN ×2 (08:12→15:29)
[2018-05-25] MEDS: FENTANYL PF 100 MCG/2ML IVPush PRN (10:03)
[2018-05-25] MEDS: ALBUMIN HUMAN 25% 100 ML IV SCH (10:27)
[2018-05-25] MEDS: hydrALAzine 20 MG/ML, 1ML IVPush PRN (11:14)
[2018-05-25] MEDS: FUROSEMIDE 40 MG/4 ML IV SCH (11:14)
[2018-05-25] MEDS: MICAFUNGIN 100 MG in SODIUM CHLORIDE 0.9% 100 ML IV SCH (11:19)
[2018-05-25] MEDS ORDERED: AMIODARONE 150 MG in DEXTROSE 5% 100 ML IV ONE (14:00)
[2018-05-25] MEDS ORDERED: DIGOXIN 0.25 MG/ML, 2ML IVPush ONE ×2 (14:00→20:00)
[2018-05-25] MEDS: AMIODARONE 900 MG in DEXTROSE 5% 482 ML IV PRN (19:34)
[2018-05-26] MEDS: MEROPENEM 1 GM in SODIUM CHLORIDE 0.9% 100 ML IV SCH ×3 (01:49→17:53)
[2018-05-26] MEDS: ACETAMINOPHEN 650 MG/20.3 ML UDC PO PRN ×2 (01:49→09:46)
[2018-05-26] MEDS: METOPROLOL TARTRATE 25 MG TABLET NG SCH (04:00)
[2018-05-26] MEDS: HEPARIN 5,000 UNITS/ML, 1ML IV PRN (04:09)
[2018-05-26 04:42] LABS: ALANINE AMINOTRANSFERASE 95 U/L (12-78); ALBUMIN 2.6 g/dL (3.4-5.0); ANION GAP 10 mmol/L (5-15); CALCIUM 7.9 mg/dL (8.5-10.1); CHLORIDE 110 mmol/L (98-107); CREATININE 0.77 mg/dL (0.7-1.3)
[2018-05-26 04:44] LABS: ALKALINE PHOSPHATASE 143 U/L (45-117); BILIRUBIN,TOTAL 1.4 mg/dL (0.2-1.0); TOTAL PROTEIN 7.5 g/dL (6.4-8.2)
[2018-05-26] MEDS: HEPARIN 25,000 UNITS/500ML PMX 500 ML IV PRN (06:59)
[2018-05-26] MEDS: FAMOTIDINE 20 MG/2 ML IVPush SCH ×2 (08:58→20:52)
[2018-05-26] MEDS: SODIUM CHLORIDE FLUSH 10ML SYR IVF SCH ×2 (08:58→20:53)
[2018-05-26] MEDS: INSULIN LISPRO 100 UNITS/ML, PEN SQ-INSULIN SCH (08:59)
[2018-05-26] MEDS ORDERED: DIGOXIN 0.25 MG TABLET ONE (09:03)
[2018-05-26] MEDS: DIGOXIN 0.25 MG TABLET PO SCH (09:37)
[2018-05-26] MEDS ORDERED: ARGATROBAN/NACL 50 MG/50 ML 50 ML IV PRN ×4 (10:00→21:00)
[2018-05-26] MEDS: METOPROLOL 1 MG/ML, 5ML IVPush PRN (10:06)
[2018-05-26] MEDS: MICAFUNGIN 100 MG in SODIUM CHLORIDE 0.9% 100 ML IV SCH (11:24)
[2018-05-26] MEDS: AMIODARONE 900 MG in DEXTROSE 5% 482 ML IV PRN (11:24)
[2018-05-26] MEDS: FILTER 0.22 MICRON IV PRN (11:27)
[2018-05-26] MEDS ORDERED: PINK LADY ENEMA 490 ML BOTTLE PR PRN (11:30)
[2018-05-26] MEDS ORDERED: POTASSIUM CHLORIDE 10% 40 MEQ/30 ML UDC PO ONE (11:30)
[2018-05-26] MEDS: VANCOMYCIN 1,800 MG in SODIUM CHLORIDE 0.9% 250 ML IV SCH (13:21)
[2018-05-26] MEDS: hydrALAzine 20 MG/ML, 1ML IVPush PRN (13:48)
[2018-05-26] MEDS: METOPROLOL TARTRATE 50 MG TABLET NG SCH ×2 (14:30→23:37)
[2018-05-27] MEDS: MEROPENEM 1 GM in SODIUM CHLORIDE 0.9% 100 ML IV SCH ×3 (01:59→17:10)
[2018-05-27] MEDS: AMIODARONE 900 MG in DEXTROSE 5% 482 ML IV PRN ×2 (02:00→17:10)
[2018-05-27] MEDS: FILTER 0.22 MICRON IV PRN ×2 (02:00→17:10)
[2018-05-27 02:09] LABS: MEAN CORPUSCULAR HEMOGLOBIN 33.2 pg (27.5-34.5); MEAN CORPUSCULAR VOLUME 97.6 fL (81-97); MEAN PLATELET VOLUME 8.4 fL (7.4-10.4); PLATELET COUNT 960 x10^3/uL (130-400); RED BLOOD COUNT 1.79 x10^6/uL (4.38-5.82); RED CELL DISTRIBUTION WIDTH 15.6 % (9.4-14.8)
[2018-05-27 02:10] LABS: ALBUMIN 2.6 g/dL (3.4-5.0); ANION GAP 9 mmol/L (5-15); CALCIUM 8.1 mg/dL (8.5-10.1); CHLORIDE 112 mmol/L (98-107)
[2018-05-27 02:17] LABS: MD YES
[2018-05-27 02:20] LABS: ANISOCYTOSIS 1+; BAND#(MANUAL) 0.19 x10^3/uL; BANDS%(MANUAL) 1 % (0-7); BASOS#(MANUAL) 0.38 x10^3/uL (0-0.1); BASOS% (MANUAL) 2 % (0-1); EOS#(MANUAL) 0.38 x10^3/uL (0.0-0.4); EOS% (MANUAL) 2 % (1-7); HYPOCHROMIA 2+; LYMPH#(MANUAL) 1.34 x10^3/uL (1-3.4); LYMPHS% (MANUAL) 7 % (22-44); NRBC % (MANUAL) 1 % (0-1); SEGS% (MANUAL) 88 % (42-75)
[2018-05-27 02:21] LABS: <PLATELET ESTIMATE> INCREASED; <PLT MORPHOLOGY> NORMAL PLT MORPH; POLYCHROMASIA 1+
[2018-05-27 02:26] LABS: ALANINE AMINOTRANSFERASE 87 U/L (12-78); ALKALINE PHOSPHATASE 132 U/L (45-117); BILIRUBIN,TOTAL 1.3 mg/dL (0.2-1.0); CREATININE 0.88 mg/dL (0.7-1.3); TOTAL PROTEIN 7.7 g/dL (6.4-8.2)
[2018-05-27] MEDS ORDERED: ARGATROBAN/NACL 50 MG/50 ML 50 ML IV PRN (02:30)
[2018-05-27] MEDS: SODIUM CHLORIDE FLUSH 10ML SYR IVF SCH ×2 (09:00→20:33)
[2018-05-27] MEDS: INSULIN LISPRO 100 UNITS/ML, PEN SQ-INSULIN SCH (09:00)
[2018-05-27] MEDS: DOXYCYCLINE 100 MG in DEXTROSE 5% 250 ML IV SCH ×2 (09:26→20:32)
[2018-05-27] MEDS: METOPROLOL TARTRATE 25 MG TABLET NG SCH ×2 (09:26→17:09)
[2018-05-27] MEDS: FAMOTIDINE 20 MG/2 ML IVPush SCH ×2 (09:26→20:33)
[2018-05-27] MEDS: DIGOXIN 0.25 MG TABLET PO SCH (09:26)
[2018-05-27 09:54] VITALS: BP 131/64
[2018-05-27 10:15] VITALS: BP 131/64
[2018-05-27 11:00] VITALS: BP 112/71
[2018-05-27 11:23] VITALS: BP 112/71
[2018-05-27 11:42] VITALS: BP 118/77
[2018-05-27 12:57] VITALS: BP 118/70
[2018-05-27] MEDS: ACETAMINOPHEN 650 MG/20.3 ML UDC PO PRN (15:02)
[2018-05-28] MEDS: METOPROLOL TARTRATE 25 MG TABLET NG SCH ×3 (00:38→16:16)
[2018-05-28] MEDS: MEROPENEM 1 GM in SODIUM CHLORIDE 0.9% 100 ML IV SCH ×3 (01:45→18:15)
[2018-05-28] MEDS: SODIUM CHLORIDE FLUSH 10ML SYR IVF SCH ×2 (07:56→20:24)
[2018-05-28] MEDS: FAMOTIDINE 20 MG/2 ML IVPush SCH ×2 (07:56→20:24)
[2018-05-28] MEDS: DOXYCYCLINE 100 MG in DEXTROSE 5% 250 ML IV SCH ×2 (07:56→20:25)
[2018-05-28] MEDS: DIGOXIN 0.25 MG TABLET PO SCH (07:56)
[2018-05-28] MEDS: INSULIN LISPRO 100 UNITS/ML, PEN SQ-INSULIN SCH (07:58)
[2018-05-28 10:28] VITALS: BP 133/81
[2018-05-28 10:39] VITALS: BP 133/81
[2018-05-28 10:51] LABS: ALANINE AMINOTRANSFERASE 74 U/L (12-78); ALBUMIN 2.3 g/dL (3.4-5.0); ANION GAP 8 mmol/L (5-15); CALCIUM 7.6 mg/dL (8.5-10.1); CHLORIDE 109 mmol/L (98-107); CREATININE 0.72 mg/dL (0.7-1.3)
[2018-05-28 10:53] LABS: ALKALINE PHOSPHATASE 95 U/L (45-117); BILIRUBIN,TOTAL 1.3 mg/dL (0.2-1.0); TOTAL PROTEIN 6.8 g/dL (6.4-8.2)
[2018-05-28 13:31] VITALS: BP 128/77
[2018-05-28 13:33] VITALS: BP 128/77
[2018-05-28 20:08] VITALS: BP 130/80
[2018-05-29] VITALS (12 sets, daily range): BP systolic 111–150; BP diastolic 71–80
[2018-05-29] MEDS: METOPROLOL TARTRATE 25 MG TABLET NG SCH ×3 (00:41→18:14)
[2018-05-29] MEDS: MEROPENEM 1 GM in SODIUM CHLORIDE 0.9% 100 ML IV SCH ×3 (00:42→18:13)
[2018-05-29] MEDS: FILTER 0.22 MICRON IV PRN (02:13)
[2018-05-29] MEDS: AMIODARONE 900 MG in DEXTROSE 5% 482 ML IV PRN (02:13)
[2018-05-29] MEDS: DIGOXIN 0.25 MG TABLET PO SCH (07:58)
[2018-05-29] MEDS: DOXYCYCLINE 100 MG in DEXTROSE 5% 250 ML IV SCH ×2 (07:58→21:25)
[2018-05-29] MEDS: FAMOTIDINE 20 MG/2 ML IVPush SCH ×2 (07:58→21:25)
[2018-05-29] MEDS: SODIUM CHLORIDE FLUSH 10ML SYR IVF SCH ×2 (07:58→21:25)
[2018-05-29] MEDS: INSULIN LISPRO 100 UNITS/ML, PEN SQ-INSULIN SCH (08:10)
[2018-05-29 09:33] LABS: MEAN CORPUSCULAR HGB CONC 33.7 g/dL (33.2-36.2); MEAN PLATELET VOLUME 7.7 fL (7.4-10.4); PLATELET COUNT 651 x10^3/uL (130-400); RED CELL DISTRIBUTION WIDTH 17.1 % (9.4-14.8)
[2018-05-29 09:44] LABS: ALANINE AMINOTRANSFERASE 72 U/L (12-78); ALBUMIN 2.3 g/dL (3.4-5.0); ANION GAP 9 mmol/L (5-15); CHLORIDE 106 mmol/L (98-107); CREATININE 0.71 mg/dL (0.7-1.3)
[2018-05-29 09:47] LABS: ALKALINE PHOSPHATASE 95 U/L (45-117); TOTAL PROTEIN 6.8 g/dL (6.4-8.2)
[2018-05-29 09:52] LABS: MD YES
[2018-05-29 09:54] LABS: ANISOCYTOSIS 1+; BAND#(MANUAL) 0.14 x10^3/uL; BANDS%(MANUAL) 1 % (0-7); EOS#(MANUAL) 0.14 x10^3/uL (0.0-0.4); EOS% (MANUAL) 1 % (1-7); LYMPH#(MANUAL) 1.01 x10^3/uL (1-3.4); LYMPHS% (MANUAL) 7 % (22-44); MONOS#(MANUAL) 0.86 x10^3/uL (0.3-2.7); MONOS% (MANUAL) 6 % (2-9); SEG#(MANUAL) 12.24 x10^3/uL (1.8-6.8); SEGS% (MANUAL) 85 % (42-75)
[2018-05-29 09:55] LABS: <PLATELET ESTIMATE> INCREASED; <PLT MORPHOLOGY> NORMAL PLT MORPH; POLYCHROMASIA 1+
[2018-05-29] MEDS: LORazepam 2 MG/ML, 1ML IVPush PRN (22:12)
[2018-05-30] MEDS: METOPROLOL TARTRATE 25 MG TABLET PO SCH ×3 (00:20→16:42)
[2018-05-30 01:00] VITALS: BP 125/76
[2018-05-30] MEDS: MEROPENEM 1 GM in SODIUM CHLORIDE 0.9% 100 ML IV SCH ×3 (02:03→18:07)
[2018-05-30 07:46] VITALS: BP 124/73
[2018-05-30 08:18] LABS: ALANINE AMINOTRANSFERASE 79 U/L (12-78); ALBUMIN 2.3 g/dL (3.4-5.0); ANION GAP 7 mmol/L (5-15); CHLORIDE 106 mmol/L (98-107); CREATININE 0.72 mg/dL (0.7-1.3)
[2018-05-30 08:21] LABS: ALKALINE PHOSPHATASE 102 U/L (45-117); BILIRUBIN,TOTAL 1.2 mg/dL (0.2-1.0); TOTAL PROTEIN 7.1 g/dL (6.4-8.2)
[2018-05-30] MEDS: FAMOTIDINE 20 MG/2 ML IVPush SCH (08:35)
[2018-05-30] MEDS: SODIUM CHLORIDE FLUSH 10ML SYR IVF SCH ×2 (08:35→20:21)
[2018-05-30] MEDS: DOXYCYCLINE 100 MG in DEXTROSE 5% 250 ML IV SCH ×2 (08:35→20:20)
[2018-05-30] MEDS: DIGOXIN 0.25 MG TABLET PO SCH (08:35)
[2018-05-30] MEDS: INSULIN LISPRO 100 UNITS/ML, PEN SQ-INSULIN SCH (09:00)
[2018-05-30 10:05] LABS: MEAN CORPUSCULAR HEMOGLOBIN 31.7 pg (27.5-34.5); MEAN CORPUSCULAR HGB CONC 34.4 g/dL (33.2-36.2); MEAN CORPUSCULAR VOLUME 92.2 fL (81-97); MEAN PLATELET VOLUME 7.7 fL (7.4-10.4); PLATELET COUNT 580 x10^3/uL (130-400); RED BLOOD COUNT 2.95 x10^6/uL (4.38-5.82)
[2018-05-30 10:29] LABS: BASOPHILS # (AUTO) 0.02 x10^3/uL (0-0.1); BASOPHILS % (AUTO) 0 % (0-1); EOSINOPHILS # (AUTO) 0.05 x10^3/uL (0-0.4); EOSINOPHILS % (AUTO) 0 % (1-7); LYMPHOCYTES # (AUTO) 0.95 x10^3/uL (1-3.4); LYMPHOCYTES % (AUTO) 8 % (22-44); MD SCAN; MONOCYTES # (AUTO) 0.79 x10^3/uL (0.2-0.8); MONOCYTES % (AUTO) 6 % (2-9); NEUTROPHILS # (AUTO) 10.63 x10^3/uL (1.8-6.8); NEUTROPHILS % (AUTO) 86 % (42-75)
[2018-05-30 14:18] VITALS: BP 122/70
[2018-05-30] MEDS: FAMOTIDINE 20 MG TABLET PO SCH (20:20)
[2018-05-30 20:23] VITALS: BP 129/89
[2018-05-30] MEDS: ACETAMINOPHEN 650 MG/20.3 ML UDC PO PRN (21:37)
[2018-05-31 00:50] VITALS: BP 142/81
[2018-05-31] MEDS: METOPROLOL TARTRATE 25 MG TABLET PO SCH ×3 (00:50→17:41)
[2018-05-31] MEDS: MEROPENEM 1 GM in SODIUM CHLORIDE 0.9% 100 ML IV SCH ×3 (02:07→17:41)
[2018-05-31 05:55] LABS: ALBUMIN 2.1 g/dL (3.4-5.0); ANION GAP 6 mmol/L (5-15); CALCIUM 7.8 mg/dL (8.5-10.1); CHLORIDE 107 mmol/L (98-107); CREATININE 0.72 mg/dL (0.7-1.3)
[2018-05-31 05:59] LABS: PREALBUMIN 6.4 mg/dL (20.0-40.0)
[2018-05-31 06:00] LABS: MEAN CORPUSCULAR HEMOGLOBIN 31.2 pg (27.5-34.5); MEAN CORPUSCULAR VOLUME 91.8 fL (81-97); MEAN PLATELET VOLUME 7.5 fL (7.4-10.4); PLATELET COUNT 455 x10^3/uL (130-400); RED BLOOD COUNT 2.72 x10^6/uL (4.38-5.82); RED CELL DISTRIBUTION WIDTH 17.5 % (9.4-14.8)
[2018-05-31 06:24] VITALS: BP 142/83
[2018-05-31 06:45] LABS: BASOPHILS # (AUTO) 0.05 x10^3/uL (0-0.1); BASOPHILS % (AUTO) 1 % (0-1); EOSINOPHILS # (AUTO) 0.04 x10^3/uL (0-0.4); EOSINOPHILS % (AUTO) 0 % (1-7); LYMPHOCYTES # (AUTO) 1.04 x10^3/uL (1-3.4); LYMPHOCYTES % (AUTO) 10 % (22-44); MD SCAN; MONOCYTES # (AUTO) 0.73 x10^3/uL (0.2-0.8); MONOCYTES % (AUTO) 7 % (2-9); NEUTROPHILS # (AUTO) 8.07 x10^3/uL (1.8-6.8); NEUTROPHILS % (AUTO) 81 % (42-75)
[2018-05-31] MEDS: INSULIN LISPRO 100 UNITS/ML, PEN SQ-INSULIN SCH (07:45)
[2018-05-31] MEDS: SODIUM CHLORIDE FLUSH 10ML SYR IVF SCH ×2 (09:45→21:34)
[2018-05-31] MEDS: FAMOTIDINE 20 MG TABLET PO SCH ×2 (09:46→21:33)
[2018-05-31] MEDS: DIGOXIN 0.25 MG TABLET PO SCH (09:46)
[2018-05-31] MEDS: DOXYCYCLINE 100MG TABLET PO SCH ×2 (09:47→21:33)
[2018-05-31 16:00] VITALS: BP 132/76
[2018-05-31 20:02] VITALS: BP 132/81
[2018-06-01] MEDS: LORazepam 2 MG/ML, 1ML IVPush PRN (00:18)
[2018-06-01 00:20] VITALS: BP 146/77
[2018-06-01] MEDS: METOPROLOL TARTRATE 25 MG TABLET PO SCH ×2 (01:47→08:57)
[2018-06-01] MEDS: MEROPENEM 1 GM in SODIUM CHLORIDE 0.9% 100 ML IV SCH ×2 (01:47→10:08)
[2018-06-01 01:49] VITALS: BP 160/88
[2018-06-01 06:50] VITALS: BP 130/82
[2018-06-01] MEDS: FAMOTIDINE 20 MG TABLET PO SCH (08:57)
[2018-06-01] MEDS: INSULIN LISPRO 100 UNITS/ML, PEN SQ-INSULIN SCH (08:57)
[2018-06-01] MEDS: DIGOXIN 0.25 MG TABLET PO SCH (08:57)
[2018-06-01] MEDS: DOXYCYCLINE 100MG TABLET PO SCH (08:57)
[2018-06-01] MEDS: SODIUM CHLORIDE FLUSH 10ML SYR IVF SCH (10:08)
[2018-06-01] MEDS ORDERED: INSU100I11 SQ-INSULIN (13:53)
[2018-06-01] MEDS ORDERED: DIGO250T PO (13:53)
[2018-06-01] MEDS ORDERED: DOXY100T PO (13:53)
[2018-06-01] MEDS ORDERED: METO25TA35 PO (13:53)
[2018-06-01] MEDS ORDERED: FAMO20TA7 PO (13:53)
[2018-06-01] MEDS ORDERED: MERO1VIA IV (13:56)
[2018-06-01 14:00] VITALS: BP 146/83
== END 2018-06-01 14:27 | DRG 853 ==
LOC: ED 11:25 → EDIP 11:47 → 3NW 12:11 → CCU 22:19 → 5SO 05-28 11:37
PROVIDERS: ADMIT Hospitalist; ATTEND Hospitalist
PROC: 02HV33Z Insertion of Infusion Device into Superior Vena Cava, Percutaneous Approach (ICD-10-PCS; 2018-05-06)
PROC: 4A133B1 Monitoring of Arterial Pressure, Peripheral, Percutaneous Approach (ICD-10-PCS; 2018-05-06)
PROC: 4A133J1 Monitoring of Arterial Pulse, Peripheral, Percutaneous Approach (ICD-10-PCS; 2018-05-06)
PROC: 4A133J1 Monitoring of Arterial Pulse, Peripheral, Percutaneous Approach (ICD-10-PCS; 2018-05-06)
PROC: 03HY32Z Insertion of Monitoring Device into Upper Artery, Percutaneous Approach (ICD-10-PCS; 2018-05-06)
PROC: 04HY32Z Insertion of Monitoring Device into Lower Artery, Percutaneous Approach (ICD-10-PCS; 2018-05-07)
PROC: 4A133B1 Monitoring of Arterial Pressure, Peripheral, Percutaneous Approach (ICD-10-PCS; 2018-05-07)
PROC: 0WUF07Z Supplement Abdominal Wall with Autologous Tissue Substitute, Open Approach (ICD-10-PCS; 2018-05-08)
PROC: 5A2204Z Restoration of Cardiac Rhythm, Single (ICD-10-PCS; 2018-05-08)
PROC: 0DTF0ZZ Resection of Right Large Intestine, Open Approach (ICD-10-PCS; principal; 2018-05-08 15:30)
PROC: 0B9J7ZX Drainage of Left Lower Lung Lobe, Via Natural or Artificial Opening, Diagnostic (ICD-10-PCS; 2018-05-10)
PROC: 0B9F7ZX Drainage of Right Lower Lung Lobe, Via Natural or Artificial Opening, Diagnostic (ICD-10-PCS; 2018-05-10)
PROC: 0J9C30Z Drainage of Pelvic Region Subcutaneous Tissue and Fascia with Drainage Device, Percutaneous Approach (ICD-10-PCS; 2018-05-18)
PROC: 30233N1 Transfusion of Nonautologous Red Blood Cells into Peripheral Vein, Percutaneous Approach (ICD-10-PCS; 2018-05-20)
PROC: 0B9F7ZX Drainage of Right Lower Lung Lobe, Via Natural or Artificial Opening, Diagnostic (ICD-10-PCS; 2018-05-22)
DX: A41.9 Sepsis, unspecified organism (principal); E43 Unspecified severe protein-calorie malnutrition; G92 Toxic encephalopathy; J96.01 Acute respiratory failure with hypoxia; K63.1 Perforation of intestine (nontraumatic); K85.20 Alcohol induced acute pancreatitis without necrosis or infection; N17.0 Acute kidney failure with tubular necrosis; R65.21 Severe sepsis with septic shock; D62 Acute posthemorrhagic anemia; E87.0 Hyperosmolality and hypernatremia; J81.1 Chronic pulmonary edema; J98.11 Atelectasis; K86.1 Other chronic pancreatitis; L03.115 Cellulitis of right lower limb; N13.30 Unspecified hydronephrosis; Z99.11 Dependence on respirator [ventilator] status; D53.9 Nutritional anemia, unspecified; E78.1 Pure hyperglyceridemia; E83.39 Other disorders of phosphorus metabolism; E83.42 Hypomagnesemia; E83.51 Hypocalcemia; E87.6 Hypokalemia; E87.70 Fluid overload, unspecified; G47.00 Insomnia, unspecified; I10 Essential (primary) hypertension; I48.0 Paroxysmal atrial fibrillation; I77.810 Thoracic aortic ectasia; I80.8 Phlebitis and thrombophlebitis of other sites; K40.90 Unilateral inguinal hernia, without obstruction or gangrene, not specified as recurrent; K43.9 Ventral hernia without obstruction or gangrene; K57.90 Diverticulosis of intestine, part unspecified, without perforation or abscess without bleeding; K70.10 Alcoholic hepatitis without ascites; K80.20 Calculus of gallbladder without cholecystitis without obstruction; M10.9 Gout, unspecified; N43.3 Hydrocele, unspecified; N45.1 Epididymitis; Z90.49 Acquired absence of other specified parts of digestive tract; Z51.5 Encounter for palliative care; Z87.891 Personal history of nicotine dependence; Z96.651 Presence of right artificial knee joint; D69.6 Thrombocytopenia, unspecified; F10.20 Alcohol dependence, uncomplicated; Z68.35 Body mass index [BMI] 35.0-35.9, adult; Z79.82 Long term (current) use of aspirin; Z88.8 Allergy status to other drugs, medicaments and biological substances
CPT/HCPCS: 36415; 36600; 74018; 74230; 76870; 82150; 84145; 99285; J3475; J3490; J7042; J7620; S0028; 31624; 49406; 70450; 71045; 74176; 74177; 76700; 80048; 80053; 80162; 80202; 81003; 82040; 82330; 82533; 82803; 82947; 82962; 83605; 83690; 83735; 84100; 84132; 84134; 84295; 84443; 84478; 84484; 85014; 85018; 85025; 85027; 85520; 85610; 85730; 86022; 86850; 86870; 86900; 86902; 86922; 86923; 87015; 87040; 87070; 87077; 87081; 87102; 87116; 87186; 87205; 87206; 88307; 93005; 93306; 93970; 94002; 94003; 94640; 96361; 96374; 96375; C1729; G0378; J0610; J1170; J1644; J1815; J1940; J2185; J2248; J2250; J2405; J2704; J3010; J3230; J3370; J3411; J3480; J7060; J7070; P9047; Q9967; C1769; C9113; J0171; J0282; J0360; J0883; J1160; J2060; J2370; J3420; J7030; J7040; J7050; P9016

== ENCOUNTER → 2018-09-18 | Outpatient (CLI) | payer OTHER ==
[~2018-09-18] MED LIST changes: +AMLO-150 PO; -AMLO5TAB7 PO; +DIGO250T PO; +DOXY100T PO; +FAMO20TA7 PO; +INSU100I11 SQ-INSULIN; +MERO1VIA IV; +METO25TA35 PO; -MIDAZOLAM 1 MG/ML, 5ML ONE; +OMNIPAQUE 350 MG/ML, 100ML BOTTLE ONE; -ROCURONIUM 10 MG/ML,10ML ONE
== END | disposition home or self-care (01) ==
LOC: RAD 11:59
PROVIDERS: ATTEND Internal Medicine Infectious Disease
DX: K65.1 Peritoneal abscess (principal); Z87.19 Personal history of other diseases of the digestive system; Z90.49 Acquired absence of other specified parts of digestive tract
CPT/HCPCS: 72193; Q9967

== ENCOUNTER 2018-11-24 11:46 | Inpatient (IN) | payer OTHER ==
[~2018-11-24] VITALS: Ht 182.9 cm; Wt 93.5 kg
[~2018-11-24 11:46] MED LIST changes: +ACET1TAB52 PO; +DOCU100T6 PO; +FLUC200T4 PO; +METO50TA82 PO; -OMNIPAQUE 350 MG/ML, 100ML BOTTLE ONE; +OXYC-432 PO; +TRAZ50TA66 PO
[2018-11-24] MEDS ORDERED: GABAPENTIN 300 MG CAPSULE PO ONE (12:30)
[2018-11-24] MEDS ORDERED: SCOPOLAMINE PATCH, 1.5MG PATCH.TD72 TD ONE (12:30)
[2018-11-24] MEDS ORDERED: ACETAMINOPHEN 500 MG TABLET PO ONE (12:30)
[2018-11-24] MEDS ORDERED: BUPIVACAINE/PF-EPI 0.5% 1:200K ONE (12:57)
[2018-11-24] MEDS ORDERED: FENTANYL PF 250 MCG/5ML ONE (13:19)
[2018-11-24] MEDS ORDERED: MIDAZOLAM 1 MG/ML, 2ML ONE (13:19)
[2018-11-24] MEDS ORDERED: CEFOTETAN PMX 2GM/50ML 50 ML ONE (13:20)
[2018-11-24] MEDS ORDERED: PROPOFOL 10 MG/ML, 20ML ONE (13:59)
[2018-11-24] MEDS ORDERED: NEOSTIGMINE 1 MG/ML, 10ML ONE (13:59)
[2018-11-24] MEDS ORDERED: ROCURONIUM 10MG/ML,5ML ONE (13:59)
[2018-11-24] MEDS ORDERED: GLYCOPYRROLATE 0.2MG/1ML, 5ML ONE (13:59)
[2018-11-24] MEDS ORDERED: CEFAZOLIN 1,000 MG ONE (13:59)
[2018-11-24] MEDS ORDERED: ONDANSETRON 2MG/ML, 2ML IV PRN (14:00)
[2018-11-24] MEDS ORDERED: OXYcodone 5 MG/5 ML ORAL.SOL UDC PO PRN (14:00)
[2018-11-24] MEDS ORDERED: PROMETHAZINE 25 MG SUPP PR PRN (14:00)
[2018-11-24] MEDS ORDERED: MEPERIDINE/PF 25MG/0.5ML IVPush PRN (14:00)
[2018-11-24] MEDS ORDERED: PROMETHAZINE 12.5 MG SUPP PR PRN (14:00)
[2018-11-24] MEDS ORDERED: HALOPERIDOL 5 MG/ML IV PRN (14:00)
[2018-11-24] MEDS ORDERED: PROMETHAZINE 25 MG/ML, 1ML IM PRN ×2 (14:00)
[2018-11-24] MEDS ORDERED: MORPHINE SULFATE 4 MG/ML, 1ML IVPush PRN (14:00)
[2018-11-24] MEDS ORDERED: LABETALOL 5MG/ML, 20ML IV PRN (14:00)
[2018-11-24] MEDS ORDERED: PROMETHAZINE 25 MG/ML, 1ML IV PRN (14:00)
[2018-11-24] MEDS ORDERED: ONDANSETRON ODT 8 MG PO PRN (14:00)
[2018-11-24] MEDS ORDERED: hydrALAzine 20 MG/ML, 1ML IV PRN (14:00)
[2018-11-24] MEDS ORDERED: FENTANYL PF 100 MCG/2ML ONE (14:28)
[2018-11-24] MEDS ORDERED: DIPHENHYDRAMINE 50 MG/ML, 1ML IVPush PRN (14:30)
[2018-11-24] MEDS ORDERED: SCOPOLAMINE PATCH, 1.5MG PATCH.TD72 TD PRN (14:30)
[2018-11-24] MEDS: FENTANYL PF 100 MCG/2ML IV PRN ×2 (14:30→14:37)
[2018-11-24] MEDS ORDERED: DEXAMETHASONE 4 MG/ML, 1ML IVPush PRN (14:30)
[2018-11-24] MEDS ORDERED: LORazepam 2 MG/ML, 1ML IVPush PRN (14:30)
[2018-11-24] MEDS ORDERED: FENTANYL PF 100 MCG/2ML IVPush PRN (14:30)
[2018-11-24] MEDS ORDERED: HYDROmorphone 2 MG/ML, 1ML ONE (14:39)
[2018-11-24] MEDS ORDERED: OXYcodone 5 MG/5 ML ORAL.SOL UDC ONE (14:39)
[2018-11-24] MEDS: HYDROmorphone 2 MG/ML, 1ML IVPush PRN ×4 (14:41→15:23)
[2018-11-24] MEDS ORDERED: D5%-0.45NACL+KCL 20MEQ 1,000 ML IV SCH (16:00)
[2018-11-24] MEDS ORDERED: ENOXAPARIN 30 MG/0.3 ML SQ SCH (16:00)
[2018-11-24] MEDS: OXYcodone IR 5MG TABLET PO PRN ×2 (17:50→22:34)
[2018-11-24 18:20] VITALS: BP 126/61
[2018-11-24] MEDS: ACETAMINOPHEN 100 ML IVPB SCH (19:30)
[2018-11-24 19:40] VITALS: BP 114/74
[2018-11-25] MEDS: ACETAMINOPHEN 100 ML IVPB SCH ×2 (01:37→06:49)
[2018-11-25 03:33] LABS: ANION GAP 5 mmol/L (5-15); CALCIUM 8.5 mg/dL (8.5-10.1); CHLORIDE 109 mmol/L (98-107); CREATININE 0.94 mg/dL (0.7-1.3)
[2018-11-25] MEDS: OXYcodone IR 5MG TABLET PO PRN ×5 (03:33→21:25)
[2018-11-25 03:38] VITALS: BP 110/73
[2018-11-25 04:21] LABS: BASOPHILS # (AUTO) 0.03 x10^3/uL (0-0.1); BASOPHILS % (AUTO) 0 % (0-1); EOSINOPHILS # (AUTO) 0.22 x10^3/uL (0-0.4); EOSINOPHILS % (AUTO) 2 % (1-7); LYMPHOCYTES # (AUTO) 2.63 x10^3/uL (1-3.4); LYMPHOCYTES % (AUTO) 23 % (22-44); MD SCAN; MEAN CORPUSCULAR HEMOGLOBIN 32.2 pg (27.5-34.5); MEAN CORPUSCULAR HGB CONC 33.6 g/dL (33.2-36.2); MEAN CORPUSCULAR VOLUME 95.9 fL (81-97); MEAN PLATELET VOLUME 7.6 fL (7.4-10.4); MONOCYTES # (AUTO) 0.62 x10^3/uL (0.2-0.8); MONOCYTES % (AUTO) 5 % (2-9); NEUTROPHILS % (AUTO) 70 % (42-75); PLATELET COUNT 222 x10^3/uL (130-400); RED BLOOD COUNT 4.01 x10^6/uL (4.38-5.82); RED CELL DISTRIBUTION WIDTH 15.7 % (9.4-14.8)
[2018-11-25] MEDS: METOPROLOL TARTRATE 25 MG TABLET PO SCH ×2 (06:00→17:34)
[2018-11-25 08:14] VITALS: BP 105/67
[2018-11-25] MEDS: ALLOPURINOL 300 MG TABLET PO SCH (08:53)
[2018-11-25] MEDS: DOCUSATE 100 MG CAPSULE PO SCH (08:53)
[2018-11-25] MEDS: PSYLLIUM PACKET PO SCH (08:54)
[2018-11-25] MEDS: ENOXAPARIN 30 MG/0.3 ML SQ SCH ×2 (08:54→19:48)
[2018-11-25 12:41] VITALS: BP 110/73
[2018-11-25] MEDS: ONDANSETRON 2MG/ML, 2ML IVPush PRN (16:12)
[2018-11-25 19:46] VITALS: BP 121/74
[2018-11-25] MEDS: ACETAMINOPHEN 325 MG TABLET PO PRN (19:48)
[2018-11-25] MEDS: DIPHENHYDRAMINE 25 MG CAPSULE PO PRN (21:25)
[2018-11-26 02:15] VITALS: BP 106/67
[2018-11-26] MEDS: OXYcodone IR 5MG TABLET PO PRN ×2 (03:14→08:27)
[2018-11-26 03:30] LABS: BASOPHILS # (AUTO) 0.04 x10^3/uL (0-0.1); BASOPHILS % (AUTO) 0 % (0-1); EOSINOPHILS # (AUTO) 0.12 x10^3/uL (0-0.4); EOSINOPHILS % (AUTO) 1 % (1-7); LYMPHOCYTES # (AUTO) 2.75 x10^3/uL (1-3.4); LYMPHOCYTES % (AUTO) 30 % (22-44); MD NO; MEAN CORPUSCULAR HGB CONC 33.4 g/dL (33.2-36.2); MEAN CORPUSCULAR VOLUME 95.6 fL (81-97); MONOCYTES # (AUTO) 0.76 x10^3/uL (0.2-0.8); MONOCYTES % (AUTO) 8 % (2-9); NEUTROPHILS # (AUTO) 5.56 x10^3/uL (1.8-6.8); NEUTROPHILS % (AUTO) 60 % (42-75); PLATELET COUNT 266 x10^3/uL (130-400); RED BLOOD COUNT 4.42 x10^6/uL (4.38-5.82); RED CELL DISTRIBUTION WIDTH 15.6 % (9.4-14.8)
[2018-11-26 03:38] LABS: ALBUMIN 3.2 g/dL (3.4-5.0); ANION GAP 7 mmol/L (5-15); CHLORIDE 105 mmol/L (98-107); CREATININE 0.88 mg/dL (0.7-1.3)
[2018-11-26 06:28] VITALS: BP 111/75
[2018-11-26] MEDS: METOPROLOL TARTRATE 25 MG TABLET PO SCH ×2 (06:29→18:32)
[2018-11-26] MEDS: PSYLLIUM PACKET PO SCH (08:21)
[2018-11-26] MEDS: ENOXAPARIN 30 MG/0.3 ML SQ SCH ×2 (08:21→20:24)
[2018-11-26] MEDS: DOCUSATE 100 MG CAPSULE PO SCH (08:22)
[2018-11-26] MEDS: ALLOPURINOL 300 MG TABLET PO SCH (08:22)
[2018-11-26] MEDS: ONDANSETRON 2MG/ML, 2ML IVPush PRN ×2 (08:27→20:42)
[2018-11-26 12:28] VITALS: BP 135/85
[2018-11-26] MEDS: CALCIUM CARBONATE 500 MG TAB.CHEW PO PRN ×2 (16:18→18:32)
[2018-11-26 20:34] VITALS: BP 149/90
[2018-11-27 02:10] VITALS: BP 134/88
[2018-11-27] MEDS: CALCIUM CARBONATE 500 MG TAB.CHEW PO PRN (02:46)
[2018-11-27] MEDS: ONDANSETRON 2MG/ML, 2ML IVPush PRN ×2 (02:46→06:24)
[2018-11-27] MEDS: ACETAMINOPHEN 325 MG TABLET PO PRN ×2 (03:06→20:15)
[2018-11-27 03:22] LABS: BASOPHILS # (AUTO) 0.04 x10^3/uL (0-0.1); BASOPHILS % (AUTO) 0 % (0-1); EOSINOPHILS # (AUTO) 0.04 x10^3/uL (0-0.4); EOSINOPHILS % (AUTO) 0 % (1-7); LYMPHOCYTES # (AUTO) 2.87 x10^3/uL (1-3.4); LYMPHOCYTES % (AUTO) 20 % (22-44); MD NO; MEAN CORPUSCULAR HEMOGLOBIN 32.5 pg (27.5-34.5); MEAN CORPUSCULAR HGB CONC 33.9 g/dL (33.2-36.2); MEAN CORPUSCULAR VOLUME 95.9 fL (81-97); MEAN PLATELET VOLUME 7.3 fL (7.4-10.4); MONOCYTES # (AUTO) 1.02 x10^3/uL (0.2-0.8); MONOCYTES % (AUTO) 7 % (2-9); NEUTROPHILS # (AUTO) 10.33 x10^3/uL (1.8-6.8); NEUTROPHILS % (AUTO) 72 % (42-75); PLATELET COUNT 294 x10^3/uL (130-400); RED BLOOD COUNT 4.42 x10^6/uL (4.38-5.82); RED CELL DISTRIBUTION WIDTH 15.2 % (9.4-14.8)
[2018-11-27 03:29] LABS: ANION GAP 9 mmol/L (5-15); CALCIUM 9.1 mg/dL (8.5-10.1); CHLORIDE 105 mmol/L (98-107); CREATININE 0.88 mg/dL (0.7-1.3)
[2018-11-27 06:24] VITALS: BP 122/81
[2018-11-27] MEDS: METOPROLOL TARTRATE 25 MG TABLET PO SCH ×2 (06:24→17:35)
[2018-11-27 07:31] VITALS: BP 130/73
[2018-11-27] MEDS ORDERED: SODIUM CHLORIDE 0.9% 1,000 ML IV SCH (08:00)
[2018-11-27] MEDS: ENOXAPARIN 30 MG/0.3 ML SQ SCH ×2 (09:26→20:14)
[2018-11-27] MEDS: METOCLOPRAMIDE 5 MG/ML, 2ML IVPush SCH ×3 (09:26→20:15)
[2018-11-27] MEDS ORDERED: OMNIPAQUE 350 MG/ML, 100ML BOTTLE ONE (10:36)
[2018-11-27] MEDS: ALLOPURINOL 300 MG TABLET PO SCH (11:14)
[2018-11-27] MEDS: DOCUSATE 100 MG CAPSULE PO SCH (11:14)
[2018-11-27] MEDS: PSYLLIUM PACKET PO SCH (11:15)
[2018-11-27] MEDS: OXYcodone IR 5MG TABLET PO PRN (14:41)
[2018-11-27 15:06] VITALS: BP 125/76
[2018-11-27 19:45] VITALS: BP 123/84
[2018-11-28 01:50] VITALS: BP 129/75
[2018-11-28] MEDS: METOCLOPRAMIDE 5 MG/ML, 2ML IVPush SCH ×4 (01:54→20:16)
[2018-11-28 05:44] LABS: BASOPHILS # (AUTO) 0.04 x10^3/uL (0-0.1); BASOPHILS % (AUTO) 0 % (0-1); EOSINOPHILS # (AUTO) 0.29 x10^3/uL (0-0.4); EOSINOPHILS % (AUTO) 3 % (1-7); LYMPHOCYTES # (AUTO) 3.14 x10^3/uL (1-3.4); LYMPHOCYTES % (AUTO) 27 % (22-44); MD NO; MEAN CORPUSCULAR HEMOGLOBIN 32.2 pg (27.5-34.5); MEAN CORPUSCULAR HGB CONC 33.3 g/dL (33.2-36.2); MEAN CORPUSCULAR VOLUME 96.5 fL (81-97); MEAN PLATELET VOLUME 7.6 fL (7.4-10.4); MONOCYTES # (AUTO) 1.09 x10^3/uL (0.2-0.8); MONOCYTES % (AUTO) 9 % (2-9); NEUTROPHILS # (AUTO) 6.97 x10^3/uL (1.8-6.8); NEUTROPHILS % (AUTO) 61 % (42-75); PLATELET COUNT 298 x10^3/uL (130-400); RED BLOOD COUNT 4.29 x10^6/uL (4.38-5.82); RED CELL DISTRIBUTION WIDTH 15.2 % (9.4-14.8)
[2018-11-28] MEDS: METOPROLOL TARTRATE 25 MG TABLET PO SCH ×2 (06:21→18:13)
[2018-11-28] MEDS: CALCIUM CARBONATE 500 MG TAB.CHEW PO PRN (06:23)
[2018-11-28 06:35] VITALS: BP 130/85
[2018-11-28] MEDS: NS + 20MEQ KCL 1,000 ML IV SCH (07:30)
[2018-11-28] MEDS ORDERED: SODIUM CHLORIDE 0.9%, 500ML IVBOLUS ONE (07:30)
[2018-11-28] MEDS: ONDANSETRON 2MG/ML, 2ML IVPush PRN (08:25)
[2018-11-28] MEDS: ENOXAPARIN 30 MG/0.3 ML SQ SCH ×2 (08:26→20:17)
[2018-11-28] MEDS: DOCUSATE 100 MG CAPSULE PO SCH (08:27)
[2018-11-28] MEDS: ALLOPURINOL 300 MG TABLET PO SCH (08:27)
[2018-11-28] MEDS: ACETAMINOPHEN 325 MG TABLET PO PRN ×4 (08:28→22:29)
[2018-11-28] MEDS: PSYLLIUM PACKET PO SCH (08:28)
[2018-11-28 13:20] VITALS: BP 134/79
[2018-11-28 19:35] VITALS: BP 114/86
[2018-11-28] MEDS: DIPHENHYDRAMINE 25 MG CAPSULE PO PRN (22:28)
[2018-11-29 01:02] VITALS: BP 115/86
[2018-11-29] MEDS: METOCLOPRAMIDE 5 MG/ML, 2ML IVPush SCH ×2 (02:13→08:15)
[2018-11-29] MEDS: NS + 20MEQ KCL 1,000 ML IV SCH (02:13)
[2018-11-29] MEDS: ACETAMINOPHEN 325 MG TABLET PO PRN ×2 (02:23→08:15)
[2018-11-29] MEDS: METOPROLOL TARTRATE 25 MG TABLET PO SCH (05:37)
[2018-11-29 05:42] LABS: BASOPHILS # (AUTO) 0.04 x10^3/uL (0-0.1); BASOPHILS % (AUTO) 1 % (0-1); EOSINOPHILS # (AUTO) 0.25 x10^3/uL (0-0.4); EOSINOPHILS % (AUTO) 3 % (1-7); LYMPHOCYTES # (AUTO) 2.58 x10^3/uL (1-3.4); LYMPHOCYTES % (AUTO) 33 % (22-44); MD NO; MEAN CORPUSCULAR HEMOGLOBIN 32.3 pg (27.5-34.5); MEAN CORPUSCULAR HGB CONC 33.6 g/dL (33.2-36.2); MEAN CORPUSCULAR VOLUME 96.1 fL (81-97); MEAN PLATELET VOLUME 7.3 fL (7.4-10.4); MONOCYTES # (AUTO) 0.79 x10^3/uL (0.2-0.8); MONOCYTES % (AUTO) 10 % (2-9); NEUTROPHILS # (AUTO) 4.18 x10^3/uL (1.8-6.8); NEUTROPHILS % (AUTO) 53 % (42-75); PLATELET COUNT 292 x10^3/uL (130-400); RED BLOOD COUNT 4.08 x10^6/uL (4.38-5.82)
[2018-11-29 05:56] LABS: ANION GAP 8 mmol/L (5-15); CALCIUM 8.8 mg/dL (8.5-10.1); CHLORIDE 109 mmol/L (98-107); CREATININE 0.81 mg/dL (0.7-1.3)
[2018-11-29 06:59] VITALS: BP 122/81
[2018-11-29] MEDS: PSYLLIUM PACKET PO SCH (07:03)
[2018-11-29] MEDS: DOCUSATE 100 MG CAPSULE PO SCH (07:03)
[2018-11-29] MEDS: ALLOPURINOL 300 MG TABLET PO SCH (08:15)
[2018-11-29] MEDS: ENOXAPARIN 30 MG/0.3 ML SQ SCH (08:16)
[2018-11-29] MEDS ORDERED: OXYC-302 PO (09:53)
[2018-11-29 10:11] VITALS: BP 121/79
== END 2018-11-29 10:35 | disposition home or self-care (01) | DRG 330 ==
LOC: ORIP 11:46 → 4NOR 15:51
PROVIDERS: ADMIT Surgery; ATTEND Surgery
PROC: 0DBB0ZZ Excision of Ileum, Open Approach (ICD-10-PCS; principal; 2018-11-24 13:30)
DX: Z43.2 Encounter for attention to ileostomy (principal); K56.7 Ileus, unspecified; K63.2 Fistula of intestine
CPT/HCPCS: 36415; 74018; 74177; 80048; 82040; 85025; 88304; 93005; G0378; J0131; J0690; J1170; J1650; J2250; J2405; J2704; J2710; J3010; J3480; Q9967; J1200; J2060; J2765; J3490; J7030; J7040; Q0163

== ENCOUNTER → 2019-06-11 | Outpatient (CLI) | payer OTHER ==
[~2019-06-11] MED LIST changes: +LISI1TAB20 PO; -LISI1TAB7 PO; +OXYC-302 PO
== END | disposition home or self-care (01) ==
LOC: CFH 12:10
PROVIDERS: ATTEND Nurse Practitioner
DX: I35.8 Other nonrheumatic aortic valve disorders (principal); I11.9 Hypertensive heart disease without heart failure; Z87.891 Personal history of nicotine dependence
CPT/HCPCS: 93306

== ENCOUNTER → 2020-06-08 | Outpatient (CLI) | payer BC ==
[~2020-06-08] MED LIST changes: -DIGO250T PO; +DIGO250T3 PO; -MERO1VIA IV; +MERO1VIA22 IV; -OXYC-432 PO; +OXYC1TAB18 PO
== END | disposition home or self-care (01) ==
LOC: CVU 10:30
PROVIDERS: ATTEND Nurse Practitioner
DX: I34.0 Nonrheumatic mitral (valve) insufficiency (principal); E78.5 Hyperlipidemia, unspecified; I11.9 Hypertensive heart disease without heart failure; I71.2 Thoracic aortic aneurysm, without rupture; Z87.891 Personal history of nicotine dependence
CPT/HCPCS: 93306

== ENCOUNTER → 2020-08-03 | Outpatient (CLI) | payer BC ==
[~2020-08-03] MED LIST changes: +OMNIPAQUE 350 MG/ML, 100ML BOTTLE ONE
== END | disposition home or self-care (01) ==
LOC: CFH 12:32
PROVIDERS: ATTEND Thoracic Surgery (Cardiothoracic Vascular Surgery)
DX: J92.9 Pleural plaque without asbestos (principal); I25.10 Atherosclerotic heart disease of native coronary artery without angina pectoris; I71.2 Thoracic aortic aneurysm, without rupture; I31.1 Chronic constrictive pericarditis
CPT/HCPCS: 71275; Q9967